=== PATIENT | female | born 1955 | race Caucasian/White ===

== ENCOUNTER 2023-08-18 07:27 | Outpatient (OUT) | payer MEDICARE, OTHER, SELFPAY ==
--- NOTE | 2023-08-18 | MM_ITS ---
Patient Name RICHARD KEEN MR# Age Sex Date Time [id number] F 08/18/2023 07:35 At the Request Of DR Joaquina Conteh M.D. RADIOLOGY REPORT PROCEDURE: MM TOMOSYNTHESIS SCREENING BI COMPARISON: MG MAMM SCREEN 3D [facility] CAD, 08/17/2022. MG MAMM SCREEN 3D [facility] CAD, 08/13/2021. INDICATIONS: screening Calculator Name NCI Breast Cancer Risk Assessment Tool 5 Year Breast Cancer Risk 1.40% Lifetime Breast Cancer Risk 4.60% Personal Breast Cancer No Personal Ovarian Cancer No Treatments None Family Cancers Brother with prostate cancer at age 69. LOCATION: [facility] BREAST COMPOSITION: Heterogeneously dense,which may obscure small masses. FINDINGS: DIAGNOSTIC CATEGORY 1--NEGATIVE. RIGHT BREAST: No significant suspicious finding. No significant change has occurred. LEFT BREAST: No significant suspicious finding. No significant change has occurred. RECOMMENDATIONS: ROUTINE MAMMOGRAM AND CLINICAL EVALUATION IN 12 MONTHS. PLEASE NOTE: A NORMAL MAMMOGRAM DOES NOT EXCLUDE THE POSSIBILITY OF BREAST CANCER. A CLINICALLY SUSPICIOUS PALPABLE LUMP SHOULD BE BIOPSIED. Dictated by: Shade Chirinos M.D. on 08/18/2023 at 12:31 Approved by: Shade Chirinos M.D. on 08/18/2023 at 12:34
== END 2023-08-18 07:28 | disposition home or self-care (01) ==
LOC: MAMMO 07:28
PROVIDERS: PCP Family Medicine; Visit Provider Family Medicine
DX: Z12.31 Encounter for screening mammogram for malignant neoplasm of breast (principal); Z80.42 Family history of malignant neoplasm of prostate
CPT/HCPCS: 77063; 77067

== ENCOUNTER 2023-09-14 09:28 | Outpatient (OUT) | payer MEDICARE, OTHER, SELFPAY ==
[2023-09-14 09:50] LABS: Basophils Absolute Auto 0.1 10^3/uL (0.0-0.1); Basophils Percent Auto 0.6 % (0.2-2.0); Eosinophils Absolute Auto 0.2 10^3/uL (0.0-0.7); Eosinophils Percent Auto 1.7 % (0.9-7.0); Hematocrit 41.2 % (36.0-48.0); Hemoglobin 12.8 g/dL (12.0-16.0); Immature Granulocytes Abs Auto 0.01 10^3/uL (0.00-0.03); Immature Granulocytes Pct Auto 0.1 % (0.0-0.5); Lymphocytes Absolute Auto 2.4 10^3/uL (1.2-3.8); Lymphocytes Percent Auto 23.5 % (20.5-60.0); Mean Corpuscular HGB Conc 31.1 g/dL (29.9-35.2); Mean Corpuscular Hemoglobin 26.3 pg (26.7-34.0); Mean Corpuscular Volume 84.6 fL (81.0-99.0); Mean Platelet Volume 10.1 fL (9.5-13.5); Monocytes Absolute Auto 0.7 10^3/uL (0.3-0.8); Neutrophils Percent Auto 67.1 % (43.0-75.0); Platelet Count 335 10^3/uL (150-450); Red Blood Count 4.87 10^6/uL (4.20-5.40); Red Cell Distribution Width 13.7 % (11.0-15.0); White Blood Count 10.4 10^3/uL (4.0-11.0)
[2023-09-14 11:06] LABS: Estimated Average Glucose 171 mg/dL; Glycohemoglobin A1C 7.6 % (4.5-6.2)
[2023-09-14 11:08] LABS: Alanine Aminotransferase 27 U/L (14-59); Albumin Globulin Ratio 0.9; Albumin Level 3.7 g/dL (3.4-5.0); Alkaline Phosphatase 106 U/L (46-116); Anion Gap 13.5; Aspartate Amino Transferase 24 U/L (15-37); BUN Creatinine Ratio 22.2; Bilirubin Total 0.8 mg/dL (0.2-1.0); Chloride 103 mmol/L (98-107); Chol HDL Ratio 3.4; Cholesterol 168 mg/dL (<=200); Estimated GFR (African America >60 (>=60); Estimated GFR (Non-African Ame >60 (>=60); Glucose 122 mg/dL (74-106); HDL Cholesterol 50 mg/dL (40-60); LDL Cholesterol Calculated 90.2 mg/dL; Potassium 4.5 mmol/L (3.5-5.1); Sodium 138 mmol/L (136-145); Total Protein 7.7 g/dL (6.4-8.2); Triglycerides 139 mg/dL (<=150); VLDL CHOLESTEROL 27.8 mg/dL
[2023-09-14 11:11] LABS: Microalbumin Urine Random 4.5 mg/dL (<=30.0)
== END 2023-09-14 09:29 | disposition home or self-care (01) ==
LOC: LAB 09:28
PROVIDERS: PCP Family Medicine; Visit Provider Family Medicine
DX: E11.65 Type 2 diabetes mellitus with hyperglycemia (principal); I10 Essential (primary) hypertension; E78.5 Hyperlipidemia, unspecified
CPT/HCPCS: 36415; 80053; 80061; 82043; 83036; 85025

== ENCOUNTER 2024-03-16 09:12 | Outpatient (OUT) | payer MEDICARE, OTHER, SELFPAY ==
--- OUTSIDE RECORDS SUMMARY | 2024-03-16 09:33 | XMS_ITS | CCD ---
Author Organization [facility] Care Team Providers Care Hadoop Analyst Name Role Phone REQUEST, NONE LISTED Attending Unavaila ble REQUEST, DR KANG LISTED Consulting Unavaila ble REQUEST, DR KANG LISTED Admitting Unavaila ble CONTEH, DR JOAQUINA Perrin Primary Care Unavailable CONTEH, DR JOAQUINA Perrin Admitting Unavailable CONTEH, DR JOAQUINA Perrin Attending Unavailable CONTEH, DR JOAQUINA Perrin Consulting Unavailable CONTEH, DR JOAQUINA Perrin Primary Care Unavailable CONTEH, DR JOAQUINA Perrin Attending Unavailable WEST, DR SUSAN Fountain Consulting Unavailable CONTEH, DR JOAQUINA Perrin Primary Care Unavailable CONTEH, DR JOAQUINA Perrin Admitting Unavailable CONTEH, DR JOAQUINA Perrin Consulting Unavailable REQUEST, NONE LISTED Admitting Unavaila ble REQUEST, DR KANG LISTED Attending Unavaila ble REQUEST, DR KANG LISTED Consulting Unavaila ble CONTEH, DR JOAQUINA Perrin Primary Care Unavailable Conteh, Joaquina Unavailable MD Benigno Johns II Attending Provider Benigno Johns II Unavailable MD Benigno Johns II Attending Provider MD Joaquina Conteh Primary Care Provider Benigno Johns II Attending Benigno Becerra II Admitting Unavailvale e Joaquina Conteh Primary Care Unavailable Benigno Johns II Attending Benigno Becerra II Admitting Pat e Allergies Allergy Classification Reported Allergen(s) Allergy Type Date of Onset Reaction(s) Facility (3 sources) patient allergy list reviewed by nurse or physicia Propensity to adverse reactions 8 Comment:Done [employer] Other (3 sources) Allergies Reconciled Propensity to adverse reactions Unknown [employer] Other Medications Current Medications Medication Drug Class(es) Dates Sig (Normalized) Sig (Original) [id number] actuat albuterol 0.09 mg/actuat metered dose inhaler (5 sources) beta2-Adrenergic Agonist Albuterol Sulfate HF A 108 (90 Base) MCG/ACT IHALE 2 PUFFS EVERY 4 HOURS NEEDED FOR 30 DAYS for 30 Active Albuterol Sulfat e HFA 108 (90 Base) MCG/ACT IHALE 2 PUFFS EVERY 4 HOURS NEEDED FOR 30 DAYS for 30 Active Albuterol Sulfat e HFA 108 (90 Base) MCG/ACT IHALE 2 PUFFS EVERY 4 HOURS NEEDED FOR 30 DAYS for 30 Active 120 actuat fluticasone propionate 0.11 mg/actuat metered dose inhaler (5 sources) Corticosteroid take 2 puff(s) by inhalation twice daily Fluticasone Propionate HFA 110 MCG/ACT 2 puffs Inhalation Twice a day for 90 days Active glipiZIDE er 10 mg 24 hr extended release oral tablet (2 sources) Sulfonylurea Start: 023 take 1 tablet by mouth every twenty-four hours glipiZIDE XL 10 MG 1 tablet with breakfast Orally Once a day for 30 day(s) Sep, Active glyBURIDE 5 mg oral tablet (3 sources) Sulfonylurea take 1 tablet by mouth once daily glyBURIDE 5 MG TAKE 1 TABLET BY MOUTH EVERY DAY for 90 Active lisinopril 20 mg oral tablet (5 sources) Angiotensin Converting Enzyme Inhibitor take 1 tablet by mouth once daily Lisinopril 20 MG TAKE 1 TABLET BY MOUTH EVERY DAY for 90 Active metFORMIN hydrochloride 1000 mg oral tablet (5 sources) Biguanide take 1 tablet by mouth twice daily metFORMIN HCl 1000 MG TAKE 1 TABLET BY MOUTH TWICE A DAY for 90 Active OneTouch Ultra - (3 sources) OneTouch Ultra - USE 1 STRIP DAILY TO TEST BLOOD SUGAR for 90 Active simvastatin 40 mg oral tablet (5 sources) HMG-CoA Reductase Inhibitor take 1 tablet by mouth once daily Simvastatin 40 MG TAKE 1 TABLET BY MOUTH EVERY DAY for 90 Active Completed/Discontinued Medications Medication Drug Class(es) Dates Sig (Normalized) Sig (Original) triamcinolone acetonide 40 mg/ml injectable suspension (6 sources) Corticosteroid Start: 07-22-2023 Kenalog-40 Jul, 40 mg Start: 07-22-2023 Kenalog-40 Jul, 80 mg Problems Active Problems Problem Classification Problem Date Documented Date Episodic/Chronic Asthma (9 sources) Asthma; Translations: [Unspecified asthma, uncomplicated] Onset: 02-20-2014 Chronic Diabetes mellitus with complications (9 sources) Type 2 diabetes mellitus with hyperglycemia; Translations: [Hyperglycemia due to type 2 diabetes mellitus] Onset: 09-19-2022 Chronic Diabetes mellitus without complication (1 source) Type 2 diabetes mellitus without complication; Translations: [Diabetes mellitus without mention of complication, type II or unspecified type, not stated as uncontrolled] Onset: 02-16-2018 Chronic Disorders of lipid metabolism (11 sources) Hyperlipidemia, unspecified; Translations: [Elevated fasting lipid profile] Onset: 02-20-2014 Chronic Essential hypertension (8 sources) Essential hypertension; Translations: [Essential (primary) hypertension] Onset: 02-20-2014 Chronic Immunizations and screening for infectious disease (1 source) Vaccination given; Translations: [Encounter for immunization] Episodic Osteoarthritis (6 sources) Primary gonarthrosis, bilateral; Translations: [Bilateral primary osteoarthritis of knee] Chronic Other circulatory disease (1 source) Elevated blood-pressure reading without diagnosis of hypertension; Translations: [Elevated blood-pressure reading, without diagnosis of hypertension] Episodic Other injuries and conditions due to external causes (1 source) History of fall; Translations: [History of falling] Episodic Other non-traumatic joint disorders (1 source) Pain in right knee Episodic Other non-traumatic joint disorders (1 source) Pain in left knee Episodic Other nutritional; endocrine; and metabolic disorders (2 sources) Body mass index 25-29 - overweight; Translations: [Body mass index (BMI) 27.0-27.9, adult] Onset: 02-16-2018 Episodic Unclassified (1 source) Pain in right knee; Translations: [Pain in right knee] Onset: 08-27-2023 Past or Other Problems Problem Classification Problem Date Documented Date Episodic/Chronic Other non-traumatic joint disorders (1 source) Arthralgia of the lower leg; Translations: [Pain in joint, lower leg] Onset: 06-08-2018 Episodic Other screening for suspected conditions (not mental disorders or infectious disease) (4 sources) Encounter for screening mammogram for malignant neoplasm of breast; Translations: [ENC SCR MAMMO MALIG NEOPLASM BREAST] Onset: 08-17-2022 Episodic Residual codes; unclassified (1 source) Family history of malignant neoplasm of other organs or systems; Translations: [FAM HX MALIG NEOPLASM OTH ORGN/SYS] Onset: 08-22-2022 Episodic Unclassified (1 source) Vaccine product containing only acellular Bordetella pertussis and Clostridium tetani and Corynebacterium diphtheriae antigens (medicinal product); Translations: [Tlgddapbbk-pzwnvly-z ertussis, combined [DTP] [DtaP]] Onset: 06-07-2017 Results Test Name Value Interpretation Reference Range Facility XR knee BI 4Von 07-22-2023 XR knee BI 4V [facility] [place] [address] XRay Report Signed Patient: Richard Keen MR#: [id number] 4 : 1955 Acct:[id number] Age/Sex: 67 / F ADM Date: 07/22/23 Loc: [facility] Room: Type: [facility] Attending Dr: Benigno Johns II, MD Copies to: Benigno Johns MD Ordering Provider: Benigno Johns MD Date of Service: 07/22/23 XR/XR knee BI 4V: PAIN ([id number]) XR/XR pelvis 1-2V: PAIN AP PELVIS: Bilateral knee series 4 views each CLINICAL HISTORY: Bilateral knee pain and stiffness for 13 years. COMPARISON: None Pelvis: Mild degenerative changes of both hips without acute bony process. Additional degenerative changes seen involving the visualized lower lumbar spine and SI joints. Bilateral knee series: Severe degenerative changes of both knees with patellofemoral and medial weightbearing joint space narrowing. Calcified loose bodies are noted. No acute bony process is seen. XR/XR pelvis 1-2V IMPRESSION: PELVIS DEMONSTRATES MILD DEGENERATIVE CHANGES OF THE HIPS WITHOUT ACUTE BONY PROCESS. KNEE SERIES DEMONSTRATES SEVERE DEGENERATIVE CHANGES OF BOTH KNEES WITHOUT ACUTE BONY PROCESS. Impression dictated by: Lane Velasquez Jr., D.OMimi07/22/2023 3:08 PM Dictation Location: [place] [address] Transcribed By: [facility] 07/22/23 1508 Dictated By: Lane Velasquez Jr, DO 07/22/23 1506 Signed By: 07/22/23 1508 Normal [facility] GLYCOHEMOGLOBIN A1Con 2022 ADA RECOMMENDATION SEE BELOW Normal [facility] Comment on above: Result Comment: ADA RECOMMENDED LIMIT 4.0 - 6.0 ADA THERAPEUTIC TARGET < 7.0 ACTION SUGGESTED > 7.0 Performed By: #### D ATA1C #### [facility] [address] [place] [address] Dr. Sumeet Guerra Glucose [Mass/Vol] 154 mg/dL Normal [facility] Comment on above: Performed By: #### D ATA1C #### [facility] [address] [place] [address] Dr. Sumeet Guerra HbA1c (Bld) [Mass fraction] 7.0 % Critically high 4.5-6.2 [facility] Comment on above: Performed By: #### D ATA1C #### [facility] [address] [place] [address] Dr. Sumeet Guerra CBC AUTO DIFFon 09-16-2022 BASO # 0.0 103/ul Normal 0.0-0.1 [facility] Comment on above: Performed By: #### C BC #### [facility] [address] [place] [address] Dr. Sumeet Guerra Basophils/100 WBC (Bld) 0.4 % Normal 0.2-2.0 [facility] Comment on above: Performed By: #### C BC #### [facility] [address] [place] [address] Dr. Sumeet Guerra EO # 0.1 103/ul Normal 0.0-0.7 [facility] Comment on above: Performed By: #### C BC #### [facility] [address] [place] [address] Dr. Sumeet Guerra Eosinophils/100 WBC (Bld) 1.7 % Normal 0.9-7.0 [facility] Comment on above: Performed By: #### C BC #### [facility] [address] [place] [address] Dr. Sumeet Guerra Erythrocyte distribution width (RBC) [Ratio] 12.9 % Normal 11.0-15.0 [facility] Comment on above: Performed By: #### C BC #### [facility] [address] [place] [address] Dr. Sumeet Guerra Hematocrit (Bld) [Volume fraction] 39.8 % Normal 36.0-48.0 [facility] Comment on above: Performed By: #### C BC #### [facility] [address] [place] [address] Dr. Sumeet Guerra Hemoglobin (Bld) [Mass/Vol] 12.9 g/dL Normal 12.0-16.0 [facility] Comment on above: Performed By: #### C BC #### [facility] [address] [place] [address] Dr. Sumeet Guerra IG # 0.02 10e3/ul Normal 0.00-0.03 [facility] Comment on above: Performed By: #### C BC #### [facility] [address] [place] [address] Dr. Sumeet Guerra IG % 0.3 % Normal 0.0-0.5 [facility] Comment on above: Performed By: #### C BC #### [facility] [address] [place] [address] Dr. Sumeet Guerra LYMPH # 2.1 103/ul Normal 1.2-3.8 [facility] Comment on above: Performed By: #### C BC #### [facility] [address] [place] [address] Dr. Sumeet Guerra Lymphocytes/100 WBC (Bld) 26.8 % Normal 20.5-60.0 [facility] Comment on above: Performed By: #### C BC #### [facility] [address] [place] [address] Dr. Sumeet Guerra MANUAL DIFF REQ NO Normal [facility] Comment on above: Performed By: #### C BC #### [facility] [address] [place] [address] Dr. Sumeet Guerra MCH (RBC) [Entitic mass] 27.7 pg Normal 26.7-34.0 [facility] Comment on above: Performed By: #### C BC #### [facility] [address] [place] [address] Dr. Sumeet Guerra MCHC (RBC) [Mass/Vol] 32.4 g/dL Normal 29.9-35.2 [facility] Comment on above: Performed By: #### C BC #### [facility] [address] [place] [address] Dr. Sumeet Guerra MCV (RBC) [Entitic vol] 85.6 fL Normal 81.0-99.0 [facility] Comment on above: Performed By: #### C BC #### [facility] [address] [place] [address] [address] Sumeet Guerra MONO # 0.6 103/ul Normal 0.3-0.8 [facility] Comment on above: Performed By: #### C BC #### [facility] [address] [place] [address] Dr. Sumeet Guerra Monocytes/100 WBC (Bld) 7.8 % Normal 1.7-12.0 [facility] Comment on above: Performed By: #### C BC #### [facility] [address] [place] [address] Dr. Sumeet Guerra NEUT # 4.9 103/ul Normal 1.4-6.5 [facility] Comment on above: Performed By: #### C BC #### [facility] [address] [place] [address] Dr. Sumeet Guerra Neutrophils/100 WBC (Bld) 63.0 % Normal 43.0-75.0 [facility] Comment on above: Performed By: #### C BC #### [facility] [address] [place] [address] Dr. Sumeet Guerra Platelet mean volume (Bld) [Entitic vol] 11.5 fL Normal 9.5-13.5 [facility] Comment on above: Performed By: #### C BC #### [facility] [address] [place] [address] Dr. Sumeet Guerra PLT 285 103/ul Normal 150-450 [facility] Comment on above: Performed By: #### C BC #### [facility] [address] [place] [address] Dr. Sumeet Guerra RBC 4.65 106/ul Normal 4.20-5.40 [facility] Comment on above: Performed By: #### C BC #### [facility] [address] [place] [address] [address] Sumeet Guerra WBC 7.7 103/ul Normal 4.0-11.0 [facility] Comment on above: Performed By: #### C BC #### [facility] [address] [place] [address] [address] Sumeet Guerra GLYCOHEMOGLOBIN A1Con 2021 ADA RECOMMENDATION SEE BELOW Normal [facility] Comment on above: Result Comment: ADA RECOMMENDED LIMIT 4.0 - 6.0 ADA THERAPEUTIC TARGET < 7.0 ACTION SUGGESTED > 7.0 Performed By: #### A 1C #### [facility] [address] [place] [address] Dr. Sumeet Guerra Glucose [Mass/Vol] 200 mg/dL Normal [facility] Comment on above: Performed By: #### A 1C #### [facility] [address] [place] [address] Dr. Sumeet Guerra HbA1c (Bld) [Mass fraction] 8.6 % Critically high 4.5-6.2 [facility] Comment on above: Performed By: #### A 1C #### [facility] [address] [place] [address] Dr. Sumeet Guerra LIPID PROFILEon 09-16-2022 CHOL-HDL RATIO NORM SEE BELOW Normal [facility] Comment on above: Result Comment: 3.3 - 4.4 LOW RISK 4.4 - 7.1 AVERAGE RISK 7.1 - 11.0 MODERATE RISK >11.0 HIGH RISK Performed By: #### L IPID, CMP #### [facility] [address] [place] [address] Dr. Sumeet Guerra Cholesterol [Mass/Vol] 138 mg/dL Normal <=200 [facility] Comment on above: Performed By: #### L IPID, CMP #### [facility] [address] [place] [address] Dr. Sumeet Guerra Cholesterol in HDL [Mass/Vol] 48 mg/dL Normal 40-60 [facility] Comment on above: Performed By: #### L IPID, CMP #### [facility] [address] [place] [address] [address] Sumeet Guerra Cholesterol in LDL [Mass/Vol] 71.6 mg/dL Normal [facility] Comment on above: Performed By: #### L IPID, CMP #### [facility] [address] [place] [address] Dr. Sumeet Guerra Cholesterol.total/Cho lesterol in HDL [Mass ratio] 2.9 {ratio} Normal [facility] Comment on above: Performed By: #### L IPID, CMP #### [facility] [address] [place] [address] Dr. Sumeet Guerra HDL NORMAL > or = 60 mg/dl - LOW CARDIOVASCULAR RISK <40 mg/dl - HIGH CARDIOVASCULAR RISK Normal [facility] Comment on above: Performed By: #### L IPID, CMP #### [facility] [address] [place] [address] Dr. Sumeet Guerra LDL CALC NORMAL SEE BELOW Normal [facility] Comment on above: Result Comment: <100 mg/dl OPTIMAL 100 - 129 mg/dl NEAR OR ABOVE OPTIMAL 130 - 159 mg/dl BORDERLINE HIGH 160 - 189 mg/dl HIGH >190 mg/dl VERY HIGH Performed By: #### L IPID, CMP #### [facility] [address] [place] [address] Dr. Sumeet Guerra Triglyceride [Mass/Vol] 92 mg/dL Normal <=150 [facility] Comment on above: Performed By: #### L IPID, CMP #### [facility] [address] [place] [address] Dr. Sumeet Guerra VLDL CALC 18.4 mg/dL Normal [facility] Comment on above: Performed By: #### L IPID, CMP #### [facility] [address] [place] [address] Dr. Sumeet Guerra MICROALBUMIN, RAND URon 12-0 mALB 12.7 mg/L Normal <=30.0 [facility] Comment on above: Performed By: #### M ALBR #### [facility] [address] [place] [address] [address] Sumeet Guerra PROF 14(COMP METB)on 022 Albumin [Mass/Vol] 3.9 g/dL Normal 3.4-5.0 [facility] Comment on above: Performed By: #### L IPID, CMP #### [facility] [address] [place] [address] [address] Sumeet Guerra Albumin/Globulin [Mass ratio] 1.1 {ratio} Normal [facility] Comment on above: Performed By: #### L IPID, CMP #### [facility] [address] [address] [address] Sumeet Guerra ALP [Catalytic activity/Vol] 103 U/L Normal 46-116 [facility] Comment on above: Performed By: #### L IPID, CMP #### [facility] [address] [place] [address] Dr. Sumeet Guerra ALT [Catalytic activity/Vol] 45 U/L Normal 14-59 [facility] Comment on above: Performed By: #### L IPID, CMP #### [facility] [address] [place] [address] Dr. Sumeet Guerra Anion gap [Moles/Vol] 12.7 mmol/L Normal [facility] Comment on above: Performed By: #### L IPID, CMP #### [facility] [address] [place] [address] Dr. Sumeet Guerra AST [Catalytic activity/Vol] 31 U/L Normal 15-37 [facility] Comment on above: Performed By: #### L IPID, CMP #### [facility] [address] [place] [address] Dr. Sumeet Guerra Bilirubin [Mass/Vol] 0.8 mg/dL Normal 0.2-1.0 [facility] Comment on above: Performed By: #### L IPID, CMP #### [facility] [address] [address] [address] Sumeet Guerra Calcium [Mass/Vol] 9.3 mg/dL Normal 8.5-10.1 [facility] Comment on above: Performed By: #### L IPID, CMP #### [facility] [address] [address] [address] Sumeet Guerra Chloride [Moles/Vol] 103 mmol/L Normal 98-107 [facility] Comment on above: Performed By: #### L IPID, CMP #### [facility] [address] [address] [address] Sumeet Guerra CO2 [Moles/Vol] 30.3 mmol/L Normal 21.0-32.0 [facility] Comment on above: Performed By: #### L IPID, CMP #### [facility] [address] [address] [address] Sumeet Guerra Creatinine [Mass/Vol] 0.64 mg/dL Normal 0.55-1.02 [facility] Comment on above: Performed By: #### L IPID, CMP #### [facility] [address] [place] [address] Dr. Sumeet Guerra EGFR-AF GUAMANIAN >60 Normal >=60 [facility] Comment on above: Performed By: #### L IPID, CMP #### [facility] [address] [place] [address] Dr. Sumeet Guerra EGFR-NON AF GUAMANIAN >60 Normal >=60 [facility] Comment on above: Performed By: #### L IPID, CMP #### [facility] [address] [place] [address] Dr. Sumeet Guerra Globulin (S) [Mass/Vol] 3.7 g/dL Normal [facility] Comment on above: Performed By: #### L IPID, CMP #### [facility] [address] [address] [address] Sumeet Guerra Glucose [Mass/Vol] 151 mg/dL Critically high 74-106 [facility] Comment on above: Performed By: #### L IPID, CMP #### [facility] [address] [place] [address] Dr. Sumeet Guerra Potassium [Moles/Vol] 4.0 mmol/L Normal 3.5-5.1 [facility] Comment on above: Performed By: #### L IPID, CMP #### [facility] [address] [address] [address] Sumeet Guerra Protein [Mass/Vol] 7.6 g/dL Normal 6.4-8.2 [facility] Comment on above: Performed By: #### L IPID, CMP #### [facility] [address] [address] [address] Sumeet Guerra Sodium [Moles/Vol] 142 mmol/L Normal 136-145 [facility] Comment on above: Performed By: #### L IPID, CMP #### [facility] [address] [address] [address] Sumeet Guerra Urea nitrogen [Mass/Vol] 17.0 mg/dL Normal 7.0-18.0 [facility] Comment on above: Performed By: #### L IPID, CMP #### [facility] [address] [address] [address] Sumeet Guerra Urea nitrogen/Creatinine [Mass ratio] 26.6 mg/mg Normal [facility] Comment on above: Performed By: #### L IPID, CMP #### [facility] [address] [address] [address] Sumeet Guerra MG MAMM SCREEN 3D MARYCRUZ CADon 08-17-2022 MG MAMM SCREEN 3D MARYCRUZ CAD Patient: RICHARD KEEN Exam Date: 08/17/2022 : 1955 Gender:F Ordering : DR JOAQUINA CONTEH M.D. Admission #: [id number] Family : Order #: [id number] CLICK HERE TO VIEW EXAM RADIOLOGY REPORT PROCEDURE: MAMMOGRAM SCREENING 3D BILATERAL CAD COMPARISON: MG MAMM SCREEN MARYCRUZ W CAD, 08/12/2020. MG MAMM SCREEN 3D MARYCRUZ CAD, 08/13/2021. INDICATIONS: Screening mammography Calculator Name NCI Breast Cancer Risk Assessment Tool 5 Year Breast Cancer Risk 1.40% Lifetime Breast Cancer Risk 4.80% Personal Breast Cancer No Personal Ovarian Cancer No Treatments None Family Cancers Brother with prostate cancer at age 69. LOCATION: [facility] BREAST COMPOSITION: Heterogeneously dense,which may obscure small masses. FINDINGS: DIAGNOSTIC CATEGORY 2--BENIGN FINDING. NO CHANGE FROM COMPARISON. Scattered benign-appearing nodules are present. Scattered benign-appearing calcifications are present. Scattered benign-appearing lymph nodes are present. RIGHT BREAST: No significant suspicious finding. LEFT BREAST: No significant suspicious finding. RECOMMENDATIONS: ROUTINE MAMMOGRAM AND CLINICAL EVALUATION IN 12 MONTHS. PLEASE NOTE: A NORMAL MAMMOGRAM DOES NOT EXCLUDE THE POSSIBILITY OF BREAST CANCER. A CLINICALLY SUSPICIOUS PALPABLE LUMP SHOULD BE BIOPSIED. Dictated by: Susan Ardon MD on 08/17/2022 at 11:59 Approved by: Susan Ardon MD on 08/17/2022 at 12:[address] [facility] GLYCOHEMOGLOBIN A1Con 2021 ADA RECOMMENDATION SEE BELOW Normal [facility] Comment on above: Result Comment: ADA RECOMMENDED LIMIT 4.0 - 6.0 ADA THERAPEUTIC TARGET < 7.0 ACTION SUGGESTED > 7.0 Performed By: #### D ATA1C #### [facility] [address] [place] [address] Dr. Sumeet Guerra Glucose [Mass/Vol] 192 mg/dL Normal [facility] Comment on above: Performed By: #### D ATA1C #### [facility] [address] [place] [address] Dr. Sumeet Guerra HbA1c (Bld) [Mass fraction] 8.3 % Critically high 4.5-6.2 [facility] Comment on above: Performed By: #### D ATA1C #### [facility] [address] [place] [address] Dr. Sumeet Guerra Vital Signs Date Time Vital Sign Value Performing Clinician Facility 09-15-2023 08:30-0500 Body height 154.94 cm Joaquina Conteh Other [facility] Other 09-15-2023 08:30-0500 Body mass index (BMI) [Ratio] 27.58 kg/m2 Joaquina Conteh Other [facility] Other 09-15-2023 08:30-0500 Body weight 66.23 kg Joaquina Conteh Other [facility] Other 09-15-2023 08:30-0500 Diastolic blood pressure 74 mm[Hg] Joaquina Conteh Other [facility] Other 09-15-2023 08:30-0500 Systolic blood pressure 142 mm[Hg] Joaquina Cnoteh Other [facility] Other 07-22-2023 10:30-0400 Body height 154.94 cm Benigno Trimble II Other [facility] Other 07-22-2023 10:30-0400 Body mass index (BMI) [Ratio] 28.15 kg/m2 Benigno Trimble II Other [facility] Other 07-22-2023 10:30-0400 Body weight 67.59 kg Benigno Trimble II Other [facility] Other 03-17-2023 08:30-0400 Body height 154.94 cm Joaquina Conteh Other [facility] Other 03-17-2023 08:30-0400 Body mass index (BMI) [Ratio] 28.15 kg/m2 Joaquina Conteh Other [facility] Other 03-17-2023 08:30-0400 Body weight 67.59 kg Joaquina Conteh Other [facility] Other 03-17-2023 08:30-0400 Diastolic blood pressure 80 mm[Hg] Joaquina Conteh Other [facility] Other 03-17-2023 08:30-0400 Systolic blood pressure 152 mm[Hg] Joaquina Conteh Other [facility] Other Encounters Encounter Date Encounter Type Care Provider Facility Start: 11-04-2023 End: 11-04-2023 ambulatory Benigno Andreas II Other [facility] Other Start: 11-04-2023 Office outpatient vi sit 15 minutes Benigno Johns II [facility] Start: 09-15-2023 End: 09-15-2023 ambulatory Joaquina Conteh Other [facility] Other Start: 09-15-2023 Patient encounter procedure Joaquina Conteh [facility] Start: 08-27-2023 End: 08-27-2023 ambulatory Benigno Johns II Facility:[facility] Start: 08-27-2023 End: 08-27-2023 ambulatory MD Joaquina Conteh Work Phone: [facility] Work Phone: Start: 08-27-2023 End: 08-27-2023 Discharged Recurring MD Joaquina Conteh Work Phone: [facility] [place] Start: 07-22-2023 Office outpatient ne w 45 minutes Benigno Johns II [facility] Start: 07-22-2023 End: 07-22-2023 ambulatory Benigno Johns II Facility:[facility] Start: 07-22-2023 End: 07-22-2023 ambulatory MD Benigno Johns II Work Phone: [facility] Work Phone: Start: 07-22-2023 End: 07-22-2023 Patient encounter procedure MD Benigno Johns II Work Phone: [facility] Start: 03-23-2023 End: 03-23-2023 ambulatory Joaquina Conteh Other [facility] Other Start: 03-23-2023 Telephone encounter Joaquina Conteh [facility] Start: 03-17-2023 End: 03-17-2023 ambulatory Joaquina Conteh Other [facility] Other Start: 03-17-2023 Office outpatient vi sit 15 minutes Joaquina Conteh [facility] Start: 01-13-2023 End: 01-14-2023 ambulatory NONE LISTED REQUEST Facility:[facility] Start: 09-16-2022 Adult health examination Benigno Johns II Other [facility] Other Start: 09-16-2022 Problem, abnormal examination Benigno Johns II Other [facility] Other Start: 09-16-2022 End: 09-17-[address] JOAQUINA CONTEH Facility:[facility] Start: 08-17-2022 End: 08-18-[address] JOAQUINA CONTEH Facility:[facility] Start: 04-23-2022 End: 04-24-2022 ambulatory NONE LISTED REQUEST Facility:[facility] Procedures Date Procedure Procedure Detail Performing Clinician Start: 07-22-2023 Pelvis X-ray MD Benigno Johns II Work Phone: Start: 07-22-2023 X-ray of both knees MD Benigno Johns II Work Phone: Start: 06-08-2018 Screening for malign ant neoplasm of colon Benigno Johns II Other Start: 06-07-2017 Screening mammography R philipplenny Johns II Other Screening for malign ant neoplasm of breast Benigno Johns II Other Immunizations Immunization Date Immunization Notes Care Provider Fa [facility] 08-06-2022 influenza virus vaccine, split virus (incl. purified surface antigen) Benigno Johns II Other [facility] Other 07-28-2022 COVID-19 Pfizer (Pediatric) Benigno Johns II Other [facility] Other 07-08-2021 influenza virus vaccine, split virus (incl. purified surface antigen) Benigno Johns II Other [facility] Other 01-11-2021 COVID-19 Vaccine Pfi zer - Documentation Purposes Only Benigno Johns II Other [facility] Other 09-03-2020 COVID-19 Vaccine Pfi zer - Documentation Purposes Only Benigno Johns II Other [facility] Other 08-12-2020 pneumococcal conjuga te vaccine, 13 valent Benigno Johns II Other [facility] Other 07-26-2020 influenza virus vaccine, split virus (incl. purified surface antigen) Benigno Johns II Other [facility] Other 07-07-2018 influenza virus vaccine, split virus (incl. purified surface antigen) Benigno Johns II Other [facility] Other 06-07-2017 diphtheria, tetanus toxoids and acellular pertussis vaccine, unspecified formulation Benigno Johns II Other [facility] Other Payers Date Payer Category Payer Unknown [id number] 1960 Medicare [id number] 1960 Self-pay 1960 Unknown [id number] 1955 Unknown [id number] .[id number] [id number] 1955 Unknown [id number] Unknown [id number] [id number] Unknown [id number] .16.84 [id number] Unknown [id number] Unknown [id number] Social History Date Type Detail Facility Unknown if ever smoked [facility] Other Sex Assigned At Sex Assigned At Bir th [facility] Other Start: 1955 Sex Assigned At Female F [facility] Medical Equipment Procedure Code Equipment Code Equipment Original Text Equi pment Identifier Dates [employer] Plus [id number] - Evaluation note 11-04-2023 Note Date & Type Note Facility 11-04-2023 Evaluation note Encounter Date Diagnosis Assessment Notes Oct, Primary osteoarthritis of both knees (ICD-10 - M17.0) Oct, Other Given the data corruption on the date of service on unable to recall our treatment plan discussion in its entirety. This documentation is being amended on 11/08/23 due to an internal data corruption event that occurred on 11/04/23. This data corruption event was NOT the result of any breach, fraud, or malicious third constitution party actors and no personal patient information was compromised. [facility] Other Evaluation note 09-15-2023 Note Date & Type Note Facility 09-15-2023 Evaluation note Encounter Date Diagnosis Assessment Notes Sep, Medicare annual wellness visit, subsequent (ICD-10 - Z00.00) Personalized health advice was given to the beneficiary including a written plan for screenings discussed and provided. Advanced care planning reviewed and/or information given as requested. Additional counseling was provided here today in regards to, [ ]. The above visit was performed by [ ], under direct supervision of [ ]. Document reviewed and amended by provider signed below. Sep, Hyperglycemia due to type 2 diabetes mellitus (ICD-10 - E11.65) Discussed labs and meds will change glyburide to glipizide followup in 6 months Sep, Asthma (ICD-10 - J45.909) pt states flovent is not on formulary but fluticasone is. states asthma is stable on present med and dose. Sep, Primary osteoarthritis of both knees (ICD-10 - M17.0) Reviewed PT and treatment with injection w ortho. [facility] Other Evaluation note 07-22-2023 Note Date & Type Note Facility 07-22-2023 Evaluation note Encounter Date Diagnosis Assessment Notes Jul, Pain in right knee (ICD-10 - M25.561) Jul, Pain in left knee (ICD-10 - M25.562) Jul, Primary osteoarthritis of both knees (ICD-10 - M17.0) Jul, Other 1. We had a long discussion with the patient today concerning their right and left knee osteoarthritis. The radiographs do show osteoarthritis of the knees. However, patient is not really having pain. I explained to her that the #1 reason to do a total knee replacement is for pain relief and if she is not having significant pain that may not be her best option. Patient voiced understanding and would like to avoid surgery if possible. 2. Tylenol: Discussed taking Tylenol (acetaminophen). Recommended adjusting their dosing to 1000mg by mouth up to 3 times a day. 3. NSAIDs: Prescribed Voltaren gel to be utilized 4-5 times a day. 4. Physical therapy: Discussed formal physical therapy and home regimen. We will get her into formal physical therapy to work on her range of motion. 5. Injections: Discussed injections as a treatment option. I informed the patient that the combination of the medication with their diabetes diagnosis could elevate their blood sugar levels temporarily. If they noticed any elevation of their blood sugar levels over the next several days, I recommended they call their PCP for further blood sugar management guidance. Patient understood and still wished to proceed with the injection. After consent was obtained, the right and left knees were injected with 2cc Kenalog and 8cc bupivicaine using sterile technique. Patient tolerated the injections well. 6. Follow up 3 months. [facility] Other Evaluation note 03-17-2023 Note Date & Type Note Facility 03-17-2023 Evaluation note Encounter Date Diagnosis Assessment Notes Mar, Asthma (ICD-10 - J45.909) Pt requests refill. Denies increased symptoms with poor air quality. Mar, Essential hypertension (ICD-10 - I10) Elevated today. Discussed increasing dose of lisinopril. Will check home bps for 1 week and call with results. Mar, Elevated lipids (ICD-10 - E78.5) chronic - check labs in Mar, Hyperglycemia due to type 2 diabetes mellitus (ICD-10 - E11.65) Improved A1C - order placed and sent to [facility] Other Evaluation note Note Date & Type Note Facility Evaluation note No Information [facility] [employer] Other Evaluation note Note Date & Type Note Facility Evaluation note No assessment information availa ble [facility] Work Phone: History general Narrative - Reported Note Date & Type Note Facility History general Narrative - Reported Type Medical History Asthma Medical History Essential hypertension Medical History Hyperglycemia due to type 2 diabetes mellitus Medical History Elevated lipids Surgical History 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 196 8 Hospitalization History SEE SURGICAL HX [place] [employer] Other Summary Purpose Family History No Family History Records FoundNo Family History Records Found Advance Directives Advance Directive Response Recorded Date/ Time Advance Directives No July 22, 2023 12:13pm Advance Directive Response Recorded Date/ Time Advance Directives No July 23, 2023 4:39pm Chief Complaint and Reason for Visit Chief Complaint m25.561 m25.562 R & L Knee pain Additional Source Comments INFORMATION SOURCE (unrecogn ized section and content) DATE CREATED AUTHOR 01/14/2023 [facility] DATE CREATED AUTHOR AUTHOR'S ORGANIZ ATION 10/14/2023 [facility] REASON FOR VISIT (unrecogniz ed section and content) 6 MONTH FOLLOW UP [facility] readi ngsNP BILAT KNEE PAINWELLNESS3 MONTH FOLLOW UP Care Teams (unrecognized sec tion and content) Team Status: Active Member Role Status Dates Joaquina Conteh MD Primary Care Provider Active Team Status: Inactive Member Role Status Dates Benigno Johns II, MD Attending Provider Active Team Status: Inactive Member Role Status Dates Benigno Johns II, MD Attending Provider Active Joaquina Conteh MD Primary Care Provider Active Goals (unrecognized section and content) Goals may be documented in a n alternate section FOR RECORDS PERTAINING TO PATIENTS WHO ARE OR HAVE BEEN ENROLLED IN A CHEMICAL DEPENDENCY/SUBSTANCEABUSE PROGRAM, SOME INFORMATION MAY BE OMITTED. This clinical summary was aggregated from multiple sources. Caution should be exercised in using it in the provision of clinical care. This summary normalizes information from multiple sources, and as a consequence, information in this document may materially change the coding, format and clinical context of patient data. In addition, data may be omitted in some cases. CLINICAL DECISIONS SHOULD BE BASED ON THE PRIMARY CLINICAL RECORDS. [employer] [facility]. provides no warranty or guarantee of the accuracy or completeness of information in this document.
[2024-03-16 11:52] LABS: Basophils Absolute Auto 0.1 10^3/uL (0.0-0.1); Basophils Percent Auto 0.7 % (0.2-2.0); Eosinophils Absolute Auto 0.2 10^3/uL (0.0-0.7); Eosinophils Percent Auto 1.9 % (0.9-7.0); Hematocrit 37.3 % (36.0-48.0); Hemoglobin 11.8 g/dL (12.0-16.0); Immature Granulocytes Abs Auto 0.02 10^3/uL (0.00-0.03); Immature Granulocytes Pct Auto 0.2 % (0.0-0.5); Lymphocytes Absolute Auto 2.3 10^3/uL (1.2-3.8); Lymphocytes Percent Auto 25.2 % (20.5-60.0); Mean Corpuscular HGB Conc 31.6 g/dL (29.9-35.2); Mean Corpuscular Hemoglobin 26.5 pg (26.7-34.0); Mean Corpuscular Volume 83.6 fL (81.0-99.0); Mean Platelet Volume 11.9 fL (9.5-13.5); Monocytes Absolute Auto 0.7 10^3/uL (0.3-0.8); Neutrophils Absolute Auto 5.9 10^3/uL (1.4-6.5); Platelet Count 338 10^3/uL (150-450); Red Blood Count 4.46 10^6/uL (4.20-5.40); Red Cell Distribution Width 14.1 % (11.0-15.0); White Blood Count 9.2 10^3/uL (4.0-11.0)
[2024-03-16 12:43] LABS: Estimated Average Glucose 186 mg/dL; Glycohemoglobin A1C 8.1 % (4.5-6.2)
== END 2024-03-16 09:13 | disposition home or self-care (01) ==
LOC: LAB 09:14
PROVIDERS: PCP Family Medicine; Visit Provider Family Medicine
DX: D64.9 Anemia, unspecified (principal); E11.65 Type 2 diabetes mellitus with hyperglycemia
CPT/HCPCS: 36415; 83036; 85025

== ENCOUNTER 2024-08-21 08:25 | Outpatient (OUT) | payer MEDICARE, OTHER, SELFPAY ==
--- NOTE | 2024-08-21 08:27 | MM_ITS ---
Patient Name: RICHARD KEEN MR#: [id number] : 1955 Exam Date: 08/21/2024 Ordering Doctor: DR Joaquina Conteh M.D. RADIOLOGY REPORT PROCEDURE: MM TOMOSYNTHESIS SCREENING BI COMPARISON: MG MAMM SCREEN 3D [facility] CAD, 08/17/2022. MM TOMOSYNTHESIS SCREENING BI, 08/18/2023. INDICATIONS: Screening Calculator Name NCI Breast Cancer Risk Assessment Tool 5 Year Breast Cancer Risk 1.40% Lifetime Breast Cancer Risk 4.30% Personal Breast Cancer No Personal Ovarian Cancer No Treatments None Family Cancers Brother with prostate cancer at age 69. LOCATION: [facility] BREAST COMPOSITION: The breasts are heterogeneously dense,which may obscure small masses. FINDINGS: DIAGNOSTIC CATEGORY 2--BENIGN FINDING. NO CHANGE FROM COMPARISON. Scattered benign-appearing calcifications are present. Scattered benign-appearing lymph nodes are present. RIGHT BREAST: No significant suspicious finding. LEFT BREAST: No significant suspicious finding. RECOMMENDATIONS: ROUTINE MAMMOGRAM AND CLINICAL EVALUATION IN 12 MONTHS. PLEASE NOTE: A NORMAL MAMMOGRAM DOES NOT EXCLUDE THE POSSIBILITY OF BREAST CANCER. A CLINICALLY SUSPICIOUS PALPABLE LUMP SHOULD BE BIOPSIED. Dictated by: Jet Ardon MD on 08/21/2024 at 09:04 Approved by: Jet Ardon MD on 08/21/2024 at 09:06
--- OUTSIDE RECORDS SUMMARY | 2024-08-21 08:36 | XMS_ITS | CCD ---
Author Organization [facility] Care Team Providers Care Anesthesiologist/Physician Name Role Phone REQUEST, NONE LISTED Attending [...] LISTED Consulting Unavaila ble CONTEH, DR JOAQUINA ePrrin Primary Care Unavailable Conteh, Joaquina Unavailable MD [...] physicia Propensity to adverse reactions 8 Comment:Done [facility] Other (3 sources) Allergies Reconciled Propensity to adverse reactions Unknown [facility] Other Medications Current Medications Medication Drug Class(es) Dates Sig (Normalized) Sig (Original) [id number] 60 actuat albuterol 0.09 mg/actuat metered dose [...] and Corynebacterium diphtheriae antigens (medicinal product); Translations: [Bnriehtswo-avxipbq-j ertussis, combined [DTP] [DtaP]] Onset: 06-07-2017 Results Test Name Value Interpretation Reference Range Facility XR knee BI 4Von 07-22-2023 XR knee BI 4V [facility] [place] [address] XRay Report Signed Patient: Richard Keen MR#: [id number] 4 : 1955 Acct:[id number] Age/Sex: 67 / F ADM Date: 07/22/23 Loc: [facility] Room: Type: [facility] Attending Dr: Benigno Johns II, MD Copies to: Benigno Johns MD Ordering Provider: Benigno Johns MD Date of Service: 07/22/23 XR/XR knee BI 4V: PAIN ([id number]) XR/XR pelvis 1-2V: PAIN AP PELVIS: Bilateral [...] Velasquez Jr., D.OMimi07/22/2023 3:08 PM Dictation Location: [place] [address] Transcribed By: [facility] 07/22/23 1508 Dictated By: Lane Velasquez Jr, DO 07/22/23 1506 Signed By: 07/22/23 1508 Normal [facility] GLYCOHEMOGLOBIN A1Con 2022 ADA RECOMMENDATION SEE BELOW Normal [facility] Comment on above: Result Comment: ADA RECOMMENDED LIMIT 4.0 - 6.0 ADA THERAPEUTIC TARGET < 7.0 ACTION SUGGESTED > 7.0 Performed By: #### D ATA1C #### [facility] [address] [place] [address] Dr. Sumeet Guerra Glucose [Mass/Vol] 154 mg/dL Normal [facility] Comment on above: Performed By: #### D ATA1C #### [facility] [address] [place] [address] Dr. Sumeet Guerra HbA1c (Bld) [Mass fraction] 7.0 % Critically high 4.5-6.2 [facility] Comment on above: Performed By: #### D ATA1C #### [facility] [address] [place] [address] Dr. Sumeet Guerra CBC AUTO DIFFon 09-16-2022 BASO # 0.0 103/ul Normal 0.0-0.1 [facility] Comment on above: Performed By: #### C BC #### [facility] [address] [place] [address] Dr. Sumeet Guerra Basophils/100 WBC (Bld) 0.4 % Normal 0.2-2.0 [facility] Comment on above: Performed By: #### C BC #### [facility] [address] [place] [address] Dr. Sumeet Guerra EO # 0.1 103/ul Normal 0.0-0.7 [facility] Comment on above: Performed By: #### C BC #### [facility] [address] [place] [address] Dr. Sumeet Guerra Eosinophils/100 WBC (Bld) 1.7 % Normal 0.9-7.0 [facility] Comment on above: Performed By: #### C BC #### [facility] [address] [place] [address] Dr. Sumeet Guerra Erythrocyte distribution width (RBC) [Ratio] 12.9 % Normal 11.0-15.0 [facility] Comment on above: Performed By: #### C BC #### [facility] [address] [place] [address] Dr. Sumeet Guerra Hematocrit (Bld) [Volume fraction] 39.8 % Normal 36.0-48.0 [facility] Comment on above: Performed By: #### C BC #### [facility] [address] [place] [address] Dr. Sumeet Guerra Hemoglobin (Bld) [Mass/Vol] 12.9 g/dL Normal 12.0-16.0 [facility] Comment on above: Performed By: #### C BC #### [facility] [address] [place] [address] Dr. Sumeet Guerra IG # 0.02 10e3/ul Normal 0.00-0.03 [facility] Comment on above: Performed By: #### C BC #### [facility] [address] [place] [address] Dr. Sumeet Guerra IG % 0.3 % Normal 0.0-0.5 [facility] Comment on above: Performed By: #### C BC #### [facility] [address] [place] [address] Dr. Sumeet Guerra LYMPH # 2.1 103/ul Normal 1.2-3.8 [facility] Comment on above: Performed By: #### C BC #### [facility] [address] [place] [address] Dr. Sumeet Guerra Lymphocytes/100 WBC (Bld) 26.8 % Normal 20.5-60.0 [facility] Comment on above: Performed By: #### C BC #### [facility] [address] [place] [address] Dr. Sumeet Guerra MANUAL DIFF REQ NO Normal The [facility] Comment on above: Performed By: #### C BC #### [facility] [address] [place] [address] Dr. Sumeet Guerra MCH (RBC) [Entitic mass] 27.7 pg Normal 26.7-34.0 [facility] Comment on above: Performed By: #### C BC #### [facility] [address] [place] [address] Dr. Sumeet Guerra MCHC (RBC) [Mass/Vol] 32.4 g/dL Normal 29.9-35.2 [facility] Comment on above: Performed By: #### C BC #### [facility] [address] [place] [address] Dr. Sumeet Guerra MCV (RBC) [Entitic vol] 85.6 fL Normal 81.0-99.0 [facility] Comment on above: Performed By: #### C BC #### [facility] [address] [address] [address] Sumeet Guerra MONO # 0.6 103/ul Normal 0.3-0.8 [facility] Comment on above: Performed By: #### C BC #### [facility] [address] [place] [address] Dr. Sumeet Guerra Monocytes/100 WBC (Bld) 7.8 % Normal 1.7-12.0 [facility] Comment on above: Performed By: #### C BC #### [facility] [address] [place] [address] Dr. Sumeet Guerra NEUT # 4.9 103/ul Normal 1.4-6.5 [facility] Comment on above: Performed By: #### C BC #### [facility] [address] [place] [address] Dr. Sumeet Guerra Neutrophils/100 WBC (Bld) 63.0 % Normal 43.0-75.0 [facility] Comment on above: Performed By: #### C BC #### [facility] [address] [place] [address] Dr. Sumeet Guerra Platelet mean volume (Bld) [Entitic vol] 11.5 fL Normal 9.5-13.5 [facility] Comment on above: Performed By: #### C BC #### [facility] [address] [place] [address] Dr. Sumeet Guerra PLT 285 103/ul Normal 150-450 [facility] Comment on above: Performed By: #### C BC #### [facility] [address] [place] [address] Dr. Sumeet Guerra RBC 4.65 106/ul Normal 4.20-5.40 [facility] Comment on above: Performed By: #### C BC #### [facility] [address] [place] [address] [address] Sumeet Guerra WBC 7.7 103/ul Normal 4.0-11.0 [facility] Comment on above: Performed By: #### C BC #### [facility] [address] [place] [address] [address] Sumeet Guerra GLYCOHEMOGLOBIN A1Con 2021 ADA RECOMMENDATION SEE BELOW Normal [facility] Comment on above: Result Comment: ADA RECOMMENDED LIMIT 4.0 - 6.0 ADA THERAPEUTIC TARGET < 7.0 ACTION SUGGESTED > 7.0 Performed By: #### A 1C #### [facility] [address] [place] [address] Dr. Sumeet Guerra Glucose [Mass/Vol] 200 mg/dL Normal [facility] Comment on above: Performed By: #### A 1C #### [facility] [address] [place] [address] Dr. Sumeet Guerra HbA1c (Bld) [Mass fraction] 8.6 % Critically high 4.5-6.2 [facility] Comment on above: Performed By: #### A 1C #### [facility] [address] [place] [address] Dr. Sumeet Guerra LIPID PROFILEon 09-16-2022 CHOL-HDL RATIO NORM SEE BELOW Normal [facility] Comment on above: Result Comment: 3.3 - 4.4 LOW RISK 4.4 - 7.1 AVERAGE RISK 7.1 - 11.0 MODERATE RISK >11.0 HIGH RISK Performed By: #### L IPID, CMP #### [facility] [address] [place] [address] Dr. Sumeet Guerra Cholesterol [Mass/Vol] 138 mg/dL Normal <=200 [facility] Comment on above: Performed By: #### L IPID, CMP #### [facility] [address] [place] [address] Dr. Sumeet Guerra Cholesterol in HDL [Mass/Vol] 48 mg/dL Normal 40-60 [facility] Comment on above: Performed By: #### L IPID, CMP #### [facility] [address] [address] [address] Sumeet Guerra Cholesterol in LDL [Mass/Vol] 71.6 mg/dL Normal [facility] Comment on above: Performed By: #### L IPID, CMP #### [facility] [address] [place] [address] Dr. Sumeet Guerra Cholesterol.total/Cho lesterol in HDL [Mass ratio] 2.9 {ratio} Normal [facility] Comment on above: Performed By: #### L IPID, CMP #### [facility] [address] [place] [address] Dr. Sumeet Guerra HDL NORMAL > or = 60 mg/dl - LOW CARDIOVASCULAR RISK <40 mg/dl - HIGH CARDIOVASCULAR RISK Normal [facility] Comment on above: Performed By: #### L IPID, CMP #### [facility] [address] [place] [address] Dr. Sumeet Guerra LDL CALC NORMAL SEE BELOW Normal [facility] Comment on above: Result Comment: <100 mg/dl OPTIMAL 100 - 129 mg/dl NEAR OR ABOVE OPTIMAL 130 - 159 mg/dl BORDERLINE HIGH 160 - 189 mg/dl HIGH >190 mg/dl VERY HIGH Performed By: #### L IPID, CMP #### [facility] [address] [place] [address] Dr. Sumeet Guerra Triglyceride [Mass/Vol] 92 mg/dL Normal <=150 [facility] Comment on above: Performed By: #### L IPID, CMP #### [facility] [address] [place] [address] Dr. Sumeet Guerra VLDL CALC 18.4 mg/dL Normal [facility] Comment on above: Performed By: #### L IPID, CMP #### [facility] [address] [place] [address] Dr. Sumeet Guerra MICROALBUMIN, RAND URon 12-0 mALB 12.7 mg/L Normal <=30.0 [facility] Comment on above: Performed By: #### M ALBR #### [facility] [address] [address] [address] Sumeet Guerra PROF 14(COMP METB)on 022 Albumin [Mass/Vol] 3.9 g/dL Normal 3.4-5.0 [facility] Comment on above: Performed By: #### L IPID, CMP #### [facility] [address] [address] [address] Sumeet Guerra Albumin/Globulin [Mass ratio] 1.1 {ratio} Normal [facility] Comment on above: Performed By: #### L IPID, CMP #### [facility] [address] [address] [address] Sumeet Guerra ALP [Catalytic activity/Vol] 103 U/L Normal 46-116 [facility] Comment on above: Performed By: #### L IPID, CMP #### [facility] [address] [place] [address] Dr. Sumeet Guerra ALT [Catalytic activity/Vol] 45 U/L Normal 14-59 [facility] Comment on above: Performed By: #### L IPID, CMP #### [facility] [address] [place] [address] Dr. Sumeet Guerra Anion gap [Moles/Vol] 12.7 mmol/L Normal [facility] Comment on above: Performed By: #### L IPID, CMP #### [facility] [address] [place] [address] Dr. Sumeet Guerra AST [Catalytic activity/Vol] 31 U/L Normal 15-37 [facility] Comment on above: Performed By: #### L IPID, CMP #### [facility] [address] [place] [address] Dr. Sumeet Guerra Bilirubin [Mass/Vol] 0.8 mg/dL Normal 0.2-1.0 [facility] Comment on above: Performed By: #### L IPID, CMP #### [facility] [address] [address] [address] Sumeet Guerra Calcium [Mass/Vol] 9.3 mg/dL Normal 8.5-10.1 [facility] Comment on above: Performed By: #### L IPID, CMP #### [facility] [address] [address] [address] Sumeet Guerra Chloride [Moles/Vol] 103 mmol/L Normal 98-107 [facility] Comment on above: Performed By: #### L IPID, CMP #### [facility] [address] [address] [address] Sumeet Guerra CO2 [Moles/Vol] 30.3 mmol/L Normal 21.0-32.0 [facility] Comment on above: Performed By: #### L IPID, CMP #### [facility] [address] [address] [address] Sumeet Guerra Creatinine [Mass/Vol] 0.64 mg/dL Normal 0.55-1.02 [facility] Comment on above: Performed By: #### L IPID, CMP #### [facility] [address] [place] [address] Dr. Sumeet Guerra EGFR-AF TAJIK >60 Normal >=60 [facility] Comment on above: Performed By: #### L IPID, CMP #### [facility] [address] [place] [address] Dr. Sumeet Guerra EGFR-NON AF TAJIK >60 Normal >=60 [facility] Comment on above: Performed By: #### L IPID, CMP #### [facility] [address] [place] [address] Dr. Sumeet Guerra Globulin (S) [Mass/Vol] 3.7 g/dL Normal [facility] Comment on above: Performed By: #### L IPID, CMP #### [facility] [address] [address] [address] Sumeet Guerra Glucose [Mass/Vol] 151 mg/dL Critically high 74-106 T [facility] Comment on above: Performed By: #### L IPID, CMP #### [facility] [address] [place] [address] Dr. Sumeet Guerra Potassium [Moles/Vol] 4.0 mmol/L Normal 3.5-5.1 [facility] Comment on above: Performed By: #### L IPID, CMP #### [facility] [address] [address] [address] Sumeet Guerra Protein [Mass/Vol] 7.6 g/dL Normal 6.4-8.2 [facility] Comment on above: Performed By: #### L IPID, CMP #### [facility] [address] [address] [address] Sumeet Guerra Sodium [Moles/Vol] 142 mmol/L Normal 136-145 [facility] Comment on above: Performed By: #### L IPID, CMP #### [facility] [address] [address] [address] Sumeet Guerra Urea nitrogen [Mass/Vol] 17.0 mg/dL Normal 7.0-18.0 [facility] Comment on above: Performed By: #### L IPID, CMP #### [facility] [address] [address] [address] Sumeet Guerra Urea nitrogen/Creatinine [Mass ratio] 26.6 mg/mg Normal [facility] Comment on above: Performed By: #### L IPID, CMP #### [facility] [address] [address] [address] Sumeet Guerra MG MAMM SCREEN 3D MARYCRUZ CADon 08-17-2022 MG MAMM SCREEN 3D MARYCRUZ CAD Patient: RICHARD KEEN Exam Date: 08/17/2022 : 1955 Gender:F Ordering : DR JOAQUINA CONTEH M.D. Admission #: [id number] Family : Order #: [id number] CLICK HERE TO VIEW EXAM RADIOLOGY REPORT [...] prostate cancer at age 68. LOCATION: [facility] BREAST COMPOSITION: Heterogeneously dense,which may obscure small [...] Ardon MD on 08/17/2022 at 12:06 Normal [facility] GLYCOHEMOGLOBIN A1Con 2021 ADA RECOMMENDATION SEE BELOW Normal [facility] Comment on above: Result Comment: ADA RECOMMENDED LIMIT 4.0 - 6.0 ADA THERAPEUTIC TARGET < 7.0 ACTION SUGGESTED > 7.0 Performed By: #### D ATA1C #### [facility] [address] [place] [address] Dr. Sumeet Guerra Glucose [Mass/Vol] 192 mg/dL Normal [facility] Comment on above: Performed By: #### D ATA1C #### [facility] [address] [place] [address] Dr. Sumeet Guerra HbA1c (Bld) [Mass fraction] 8.3 % Critically high 4.5-6.2 [facility] Comment on above: Performed By: #### D ATA1C #### [facility] [address] [place] [address] Dr. Sumeet Guerra Vital Signs Date Time Vital Sign Value Performing Clinician Facility 09-15-2023 08:30-0500 Body height 154.94 cm Joaquina Conteh [facility] Other 09-15-2023 08:30-0500 Body mass index (BMI) [Ratio] 27.58 kg/m2 Joaquina Conteh [facility] Other 09-15-2023 08:30-0500 Body weight 66.23 kg Joaquian Conteh Other [facility] Other 09-15-2023 08:30-0500 Diastolic blood pressure 74 mm[Hg] Joaquina Conteh Other [facility] Other 09-15-2023 08:30-0500 Systolic blood pressure 142 mm[Hg] Joaquina Conteh [facility] Other 07-22-2023 10:30-0400 Body height 154.94 cm Benigno [place] II Other [facility] Other 07-22-2023 10:30-0400 Body mass index (BMI) [Ratio] 28.15 kg/m2 Benigno Andreas II Other [facility] Other 07-22-2023 10:30-0400 Body weight 67.59 kg Benigno Andreas II Other [facility] Other 03-17-2023 08:30-0400 Body height 154.94 cm Joaquina Conteh Other [facility] Other 03-17-2023 08:30-0400 Body mass index (BMI) [Ratio] 28.15 kg/m2 Joaquina Conteh Other [facility] Other 03-17-2023 08:30-0400 Body weight 67.59 kg Joaquina Conteh Other [facility] Other 03-17-2023 08:30-0400 Diastolic blood pressure 80 mm[Hg] Joaquina Conteh Other [facility] Other 03-17-2023 08:30-0400 Systolic blood pressure 152 mm[Hg] Joaquina Conteh [facility] Other Encounters Encounter Date Encounter Type Care Provider Facility Start: 11-04-2023 End: 11-04-2023 ambulatory Benigno Andreas II [facility] Other Start: 11-04-2023 Office outpatient vi sit 15 minutes Benigno Johns II [facility] Start: 09-15-2023 End: 09-15-2023 ambulatory Joaquina Conteh [facility] Other Start: 09-15-2023 Patient encounter procedure Joaquina Conteh [facility] Start: 08-27-2023 End: 08-27-2023 ambulatory Benigno Johns II Facility:[facility] Start: 08-27-2023 End: 08-27-2023 ambulatory MD Joaquina Conteh Work Phone: [facility] Work Phone: Start: 08-27-2023 End: 08-27-2023 Discharged Recurring MD Joaquina Conteh Work Phone: [facility] [place] Start: 07-22-2023 Office outpatient ne w 45 minutes Benigno Johns II [facility] Start: 07-22-2023 End: 07-22-2023 ambulatory Benigno Johns II Facility:[facility] Start: 07-22-2023 End: 07-22-2023 ambulatory MD Benigno Johns II Work Phone: [facility] Work Phone: Start: 07-22-2023 End: 07-22-2023 Patient encounter procedure MD Benigno Johns II Work Phone: [facility] Start: 03-23-2023 End: 03-23-2023 ambulatory Joaquina Conteh Other [facility] Other Start: 03-23-2023 Telephone encounter Joaquina Conteh [facility] Start: 03-17-2023 End: 03-17-2023 ambulatory Joaquina Conteh [facility] Other Start: 03-17-2023 Office outpatient vi sit 15 minutes Joaquina Conteh [facility] Start: 01-13-2023 End: 01-14-2023 ambulatory NONE LISTED REQUEST Facility:[facility] Start: 09-16-2022 Adult health examination Benigno Johns II [facility] Other Start: 09-16-2022 Problem, abnormal examination Benigno Johns II [facility] Other Start: 09-16-2022 End: 09-17-[address] [...] Immunization Date Immunization Notes Care Provider Fa [facility] 08-06-2022 influenza virus vaccine, split virus (incl. purified surface antigen) Benigno Johns II [facility] Other 07-28-2022 COVID-19 Pfizer (Pediatric) Benigno Johns II [facility] Other 07-08-2021 influenza virus vaccine, split virus (incl. purified surface antigen) Benigno Johns II [facility] Other 01-11-2021 COVID-19 Vaccine Pfi zer - Documentation Purposes Only Benigno Johns II [facility] Other 09-03-2020 COVID-19 Vaccine Pfi zer - Documentation Purposes Only Benigno Johns II [facility] Other 08-12-2020 pneumococcal conjuga te vaccine, 13 valent Benigno Johns II [facility] Other 07-26-2020 influenza virus vaccine, split virus (incl. purified surface antigen) Benigno Johns II [facility] Other 07-07-2018 influenza virus vaccine, split virus (incl. purified surface antigen) Benigno Johns II [facility] Other 06-07-2017 diphtheria, tetanus toxoids and acellular pertussis vaccine, unspecified formulation Benigno Johns II [facility] Other Payers Date Payer Category Payer Unknown [id number] 1960 Medicare [id number] 1960 Self-pay 1960 Unknown [id number] 1955 Unknown [id number] .16.84 [id number] 1955 Unknown [id number] Unknown [id number] .16.84 [id number] Unknown [id number] .16.84 [id number] Unknown [id number] 2.16.8 [id number] Unknown [id number] 2.16.8 [id number] Social History Date Type Detail Facility Unknown if ever smoked [facility] Other Sex Assigned At Sex Assigned At Bir th [facility] Other Start: 1955 Sex Assigned At Female F [facility] Medical Equipment Procedure Code Equipment Code Equipment Original Text Equi pment Identifier Dates OneTouch Delica Plus [id number] - Evaluation note 11-04-2023 Note Date & [...] of any breach, fraud, or malicious third alliance party actors and no personal patient information was compromised. [facility] Other Evaluation note 09-15-2023 Note Date & [...] PT and treatment with injection w ortho. [facility] Other Evaluation note 07-22-2023 Note Date & [...] injections well. 6. Follow up 3 months. [facility] Other Evaluation note 03-17-2023 Note Date & [...] A1C - order placed and sent to [facility] Other Evaluation note Note Date & Type Note Facility Evaluation note No Information [facility] Other Evaluation note Note Date & Type Note Facility Evaluation note No assessment information availa ble [facility] Work Phone: History general Narrative - Reported Note Date & Type Note Facility History general Narrative - Reported Type Medical History Asthma Medical History Essential hypertension Medical History Hyperglycemia due to type 2 diabetes mellitus Medical History Elevated lipids Surgical History 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 [employer] [facility]. provides no warranty or guarantee of the accuracy or completeness of information in this document.
== END 2024-08-21 08:26 | disposition home or self-care (01) ==
LOC: MAMMO 08:25
PROVIDERS: PCP Family Medicine; Visit Provider Family Medicine
DX: Z12.31 Encounter for screening mammogram for malignant neoplasm of breast (principal); Z80.42 Family history of malignant neoplasm of prostate
CPT/HCPCS: 77063; 77067

== ENCOUNTER 2024-09-18 09:33 | Outpatient (OUT) | payer MEDICARE, OTHER, SELFPAY ==
[2024-09-18 09:47] LABS: Basophils Percent Auto 0.4 % (0.2-2.0); Eosinophils Absolute Auto 0.1 10^3/uL (0.0-0.7); Eosinophils Percent Auto 1.3 % (0.9-7.0); Hemoglobin 13.9 g/dL (12.0-16.0); Immature Granulocytes Abs Auto 0.01 10^3/uL (0.00-0.03); Immature Granulocytes Pct Auto 0.1 % (0.0-0.5); Lymphocytes Percent Auto 22.4 % (20.5-60.0); Mean Corpuscular HGB Conc 32.3 g/dL (29.9-35.2); Mean Corpuscular Hemoglobin 27.9 pg (26.7-34.0); Mean Corpuscular Volume 86.3 fL (81.0-99.0); Mean Platelet Volume 10.2 fL (9.5-13.5); Monocytes Absolute Auto 0.6 10^3/uL (0.3-0.8); Monocytes Percent Auto 6.3 % (1.7-12.0); Neutrophils Absolute Auto 6.2 10^3/uL (1.4-6.5); Neutrophils Percent Auto 69.5 % (43.0-75.0); Platelet Count 312 10^3/uL (150-450); Red Blood Count 4.98 10^6/uL (4.20-5.40); Red Cell Distribution Width 13.2 % (11.0-15.0); White Blood Count 8.9 10^3/uL (4.0-11.0)
[2024-09-18 10:03] LABS: Anion Gap 13.6; BUN Creatinine Ratio 25.7; Calcium 9.4 mg/dL (8.5-10.1); Carbon Dioxide 28.4 mmol/L (21.0-32.0); Chloride 108 mmol/L (98-107); Estimated GFR (African America >60 (>=60 mL/min/1.73m^2); Estimated GFR (Non-African Ame >60 (>=60 mL/min/1.73m^2); Glucose 114 mg/dL (74-106); Sodium 145 mmol/L (136-145)
[2024-09-18 10:14] LABS: Estimated Average Glucose 157 mg/dL; Glycohemoglobin A1C 7.1 % (4.5-6.2)
== END 2024-09-18 09:34 | disposition home or self-care (01) ==
LOC: LAB 09:35
PROVIDERS: PCP Family Medicine; Visit Provider Family Medicine
DX: D64.9 Anemia, unspecified (principal); E11.65 Type 2 diabetes mellitus with hyperglycemia; I10 Essential (primary) hypertension
CPT/HCPCS: 36415; 80048; 83036; 85025

== ENCOUNTER 2025-03-19 09:34 | Outpatient (OUT) | payer MEDICARE, OTHER, SELFPAY ==
--- OUTSIDE RECORDS SUMMARY | 2025-03-19 09:55 | XMS_ITS | CCD ---
Author Organization [facility] CliniSyky Care Team Providers Care Data Management Consultant Name Role Phone REQUEST, NONE LISTED Attending Unavaila ble REQUEST, NONE LISTED Consulting Unavaila ble REQUEST, DR KANG LISTED Admitting Unavaila ble HARRELL, DR JOAQUINA Perrin Primary Care Unavailable HARRELL, DR JOAQUINA Perrin Admitting Unavailable HARRELL, DR JOAQUINA Perrin Attending Unavailable HARRELL, DR JOAQUINA Perrin Consulting Unavailable HARRELL, DR JOAQUINA Perrin Primary Care Unavailable HARRELL, DR JOAQUINA Perrin Attending Unavailable WEST, DR SUSAN Fountain Consulting Unavailable HARRELL, DR JOAQUINA Perrin Primary Care Unavailable HARRELL, DR JOAQUINA Perrin Admitting Unavailable HARRELL, DR JOAQUINA Perrin Consulting Unavailable REQUEST, NONE LISTED Admitting Unavaila ble REQUEST, NONE LISTED Attending Unavaila ble REQUEST, DR KANG LISTED Consulting Unavaila ble HARRELL, DR JOAQUINA Perrin Primary Care Unavailable Joaquina Harrell Unavailable MD Benigno Johns II Attending Provider [phone] Benigno Johns II Unavailable [phone] MD Benigno Johns II Attending Provider [phone] MD Joaquina Harrell Primary Care Provider [phone] Joaquina Harrell MD Primary Care Provider [phone] Simone Calero MD Attending Provider Simone Calero Attending Unavailable Simone Calero Admitting Unavailable Joaquina Harrell Primary Care Unavailable Allergies Allergy Classification Reported Allergen(s) Allergy Type Date of Onset Reaction(s) Facility (3 sources) patient allergy list reviewed by nurse or physicia Propensity to adverse reactions 8 Comment:Done InCast Other (3 sources) Allergies Reconciled Propensity to adverse reactions Unknown InCast Other Medications Current Medications Medication Drug Class(es) Dates Sig (Normalized) Sig (Original) [id number] 200 actuat albuterol 0.09 mg/actuat metered dose inhaler (7 sources) beta2-Adrenergic Agonist Start: 03-16-2024 take 1 puff(s) by inhalation every four hours as needed for wheezing Albuterol Sulfate 90 mcg/actuation HFA aerosol inhaler Active 2 PUFF INHALATION Every 4 hours as needed for shortness of breath or wheezing 8.5 March 16, 2024 7:47am Start: 03-15-2024 End: 03-16-2024 take 2 puff(s) by inhalation every four hours as needed Albuterol Sulfate 90 mcg/actuation HFA aerosol inhaler Discontinued INHALATION March 14, 2024 11:00pm March 16, 2024 7:48am FreeTextSig: IHALE 2 PUFFS EVERY 4 HOURS NEEDED FOR 30 DAYS; Note: Source Status: Taking; Refills: 3; Qty: 18 Each; Provider: Yady Kunz ( ) Albuterol Sulfat e HFA 108 (90 Base) MCG/ACT IHALE 2 PUFFS EVERY 4 HOURS NEEDED FOR 30 DAYS for 30 Active Albuterol Sulfat e HFA 108 (90 Base) MCG/ACT IHALE 2 PUFFS EVERY 4 HOURS NEEDED FOR 30 DAYS for 30 Active Albuterol Sulfat e HFA 108 (90 Base) MCG/ACT IHALE 2 PUFFS EVERY 4 HOURS NEEDED FOR 30 DAYS for 30 Active empagliflozin 10 mg oral tablet (5 sources) Sodium-Glucose Cotransporter 2 Inhibitor Start: 05-24-2024 End: 10-17-2024 take 1 tablet by mouth once daily Empagliflozin (Jardiance) 10 mg tablet Active 0 .ROUTE .COMPLEX October 17, 2024 9:56am TAKE 1 TABLET BY MOUTH EVERY DAY Start: 03-26-2024 End: 05-24-2024 take 1 tablet by mouth once daily Empagliflozin 10 mg tablet Discontinued 10 MG PO Daily April 24, 2024 11:42am May 24, 2024 9:30am 120 actuat fluticasone propionate 0.11 mg/actuat metered dose inhaler (5 sources) Corticosteroid take 2 puff(s) by inhalation twice daily Fluticasone Propionate HFA 110 MCG/ACT 2 puffs Inhalation Twice a day for 90 days Active Fluticasone Propionate 110 mcg/actuation HFA aerosol inhaler (1 source) Start: 03-15-2024 take 2 puff(s) by inhalation twice daily Fluticasone Propionate 110 mcg/actuation HFA aerosol inhaler Active 2 PUFF INHALATION Twice daily March 14, 2024 11:00pm FreeTextSi puffs Inhalation Twice a day; Note: Source Status: Start; Refills: 3; Provider: Yady Perrin glipiZIDE er 10 mg 24 hr extended release oral tablet (4 sources) Sulfonylurea Start: 05-15-2024 take 1 tablet by mouth once daily at breakfast Glipizide 10 mg tablet extended release 24hr Active 0 .ROUTE .COMPLEX May 15, 2024 8:43am TAKE 1 TABLET BY MOUTH EVERY DAY WITH BREAKFAST Start: 03-15-2024 End: 05-15-2024 take 1 tablet by mouth once daily at breakfast Glipizide 10 mg tablet extended release 24hr Discontinued 1 TAB PO Daily March 14, 2024 11:00pm May 15, 2024 8:43am FreeTextSi tablet with breakfast Orally Once a day; Note: Source Status: Refill; Provider: Yady Perrin Start: 09-15-2023 take 1 tablet by kristie th every twenty-four hours glipiZIDE XL 10 MG 1 tablet with breakfast Orally Once a day for 30 day(s) Sep, Active glyBURIDE 5 mg oral tablet (3 sources) Sulfonylurea take 1 tablet by mouth once daily glyBURIDE 5 MG TAKE 1 TABLET BY MOUTH EVERY DAY for 90 Active lisinopril 20 mg oral tablet (7 sources) Angiotensin Converting Enzyme Inhibitor Start: take 1 tablet by mouth once daily Lisinopril 20 mg tablet Active 0 .ROUTE .COMPLEX May 15, 2024 8:43am TAKE 1 TABLET BY MOUTH EVERY DAY Start: 03-15-2024 End: 05-15-2024 take 1 tablet by mouth once daily Lisinopril 20 mg tablet Discontinued 1 TAB PO Daily March 14, 2024 11:00pm May 15, 2024 8:43am FreeTextSig: TAKE 1 TABLET BY MOUTH EVERY DAY; Note: Source Status: Taking; Refills: 3; Qty: 90 Tablet; Provider: Yady Kunz ( ) take 1 tablet by kristie th once daily Lisinopril 20 MG TAKE 1 TABLET BY MOUTH EVERY DAY for 90 Active metFORMIN hydrochloride 1000 mg oral tablet (6 sources) Biguanide Start: 03-15-2024 take 1 tablet by mouth twice daily Metformin 1,000 mg tablet Active 1 TAB PO Twice daily March 14, 2024 11:00pm FreeTextSig: TAKE 1 TABLET BY MOUTH TWICE A DAY; Note: Source Status: Taking; Refills: 3; Qty: 180 Tablet; Provider: Yady Kunz ( ) take 1 tablet by mouth twice johnathon ly metFORMIN HCl 1000 MG TAKE 1 TABLET BY MOUTH TWICE A DAY for 90 Active OneTouch Ultra - (3 sources) OneTouch Ultra - USE 1 STRIP DAILY TO TEST BLOOD SUGAR for 90 Active simvastatin 40 mg oral tablet (7 sources) HMG-CoA Reductase Inhibitor Start: 06-26-2024 take 1 tablet by mouth once daily Simvastatin 40 mg tablet Active 0 .ROUTE .COMPLEX 90 June 26, 2024 9:20am TAKE 1 TABLET BY MOUTH EVERY DAY Start: 03-15-2024 End: 06-26-2024 take 1 tablet by mouth once daily Simvastatin 40 mg tablet Discontinued 1 TAB PO Daily March 14, 2024 11:00pm June 26, 2024 9:20am FreeTextSig: TAKE 1 TABLET BY MOUTH EVERY DAY; Note: Source Status: Start; Refills: 2; Qty: 90 Tablet; Provider: Yady Kunz ( ) take 1 tablet by kristie th once daily Simvastatin 40 MG TAKE 1 TABLET BY MOUTH EVERY DAY for 90 Active Completed/Discontinued Medications Medication Drug Class(es) Dates Sig (Normalized) Sig (Original) triamcinolone acetonide 40 mg/ml injectable suspension (6 sources) Corticosteroid Start: 07-22-2023 Kenalog-40 Jul, 40 mg Start: 07-22-2023 Kenalog-40 Jul, 80 mg Problems Active Problems Problem Classification Problem Date Documented Da te Episodic/Chronic Asthma (9 sources) Asthma; Translations: [Unspecified asthma, uncomplicated] Onset: 02-20-2014 Chronic Deficiency and other anemia (1 source) Anemia; Translations: [Anemia, unspecified] 03-26-2024 Episodic Deficiency and other anemia (1 source) Anemia, unspecified; Translations: [Anemia, unspecified] 09-18-2024 Episodic Diabetes mellitus with complications (11 sources) Type 2 diabetes mellitus with hyperglycemia; [...] lipid profile] Onset: 02-20-2014 Chronic Essential hypertension (10 sources) Essential hypertension; Translations: [Essential (primary) hypertension] Onset: 02-20-2014 Chronic Immunizations and screening for infectious disease (1 source) Vaccination given; Translations: [Encounter for immunization] Episodic Osteoarthritis (8 sources) Primary gonarthrosis, bilateral; Translations: [Bilateral primary osteoarthritis of knee] Chronic Other circulatory disease (1 source) Elevated blood-pressure reading without diagnosis of hypertension; Translations: [Elevated blood-pressure reading, without diagnosis of hypertension] Episodic Other gastrointestinal disorders (1 source) Stool DNA-based colorectal cancer screening positive; Translations: [Other fecal abnormalities] 10-02-2024 Episodic Other injuries and conditions due to [...] index (BMI) 27.0-27.9, adult] Onset: 02-16-2018 Episodic Other screening for suspected conditions (not mental disorders or infectious disease) (7 sources) Encounter for screening mammogram for malignant neoplasm of breast; Translations: [Patient encounter status] Onset: 08-17-2022 Episodic Past or Other Problems Problem Classification Problem Date Documented Date Episodic/Chronic Other non-traumatic joint disorders (1 source) Arthralgia of the lower leg; Translations: [Pain in joint, lower leg] Onset: 06-08-2018 Episodic Residual codes; unclassified (1 source) Family history of malignant neoplasm of other organs or systems; Translations: [FAM HX MALIG NEOPLASM OTH ORGN/SYS] Onset: 08-22-2022 Episodic Unclassified (1 source) Vaccine product containing only acellular Bordetella pertussis and Clostridium tetani and Corynebacterium diphtheriae antigens (medicinal product); Translations: [Pkodogxonh-bjvypkn-b ertussis, combined [DTP] [DtaP]] Onset: 06-07-2017 Results Test Name Value Interpretation Reference Range Facility Glucose Glucometer (dC) [M ass/Vol]Ordered By: Simone Calero on 10-30-2024 Glucose [Mass/Vol] Capillary blood glucose measurement by glucometer (mass/volume) [facility] Comment on above: Random Glucose Refer ence Range is dependent on time and content of last meal. Glucose of more than 200 mg/dL in a nonstressed, ambulatory subject supports the diagnosis of Diabetes Mellitus. Glucose Poct Glucometerson 0 10-30-2024 Glucose [Mass/Vol] 159 mg/dL Normal [facility] Comment on above: Result Comment: [place] Glucose Reference Range is dependent on time and content of last meal. Glucose of more than 200 mg/dL in a nonstressed, ambulatory subject supports the diagnosis of Diabetes Mellitus. PERFORMED BY: [facility] [address] [place] [address] PATHOLOGIST HOME PERFORMANCE CONSULTANT BETTYE CASTLE M.D. Performed By: #### G DOMO #### Point of Care testing , Paul 10-30-2024 L Specimen: [id number] Received: 10/30/24 Status: ZEE Valdez Num: [id number] Spec Type: Surgical Subm Dr: Simone Calero MD Tissues: A Colon Biopsy (SIGMOID POLYP) Procedures: HE/2, Gross/Micro L4 Age/ Patient Sex Location Account Attending Physician Jyothi Keen 69/F [id number] Simone Calero MD SPEC NUM: [id number] RECD: 10/30/24 STATUS: ZEE VALDEZ NUM: [id number] ZOILA: 10/30/[address] [facility] DR: Simone Calero MD ENTERED: 10/30/[address] [facility] [address]: SANDRA TYPE: Surgical DEPT: S ENTERED BY: [id number] RECV BY: [id number] ORDERED: HE/2, Gross/Micro L4 ORDERED: HE/2, Gross/Micro L4 Pathological Diagnosis Sigmoid polyp: Hyperplastic polyp. Clinical Information Positive Cologuard Gross Description Part A is received in formalin labeled with the patients name, date of , and sigmoid polyp is a carrillo-guido, focally erythematous, friable, 0.5 cm in greatest dimension polypoid fragment. The specimen is entirely submitted in a single cassette. (1, ns, [id number]) CPT Codes 74534 Specimen: [id number] Received: 10/30/24 Status: ZEE Cheemaroshan Num: [id number] Spec Type: Surgical Subm Dr: Simone Calero MD Tissues: A Colon Biopsy (SIGMOID POLYP) Procedures: Mel GREENBERG/Tom L4 Patient: Jyothi Keen [id number] (Continued) Signed (signature on file) Mechelle Henderson MD 10/31/24 1300 Normal [facility] Basophils Auto (Bld) [#/Vol] on 09-18-2024 Basophils (Bld) [#/Vol] Automated basophil count 0.0-0.1 [facility] Basophils/100 WBC Auto (Bld) on 09-18-2024 Basophils/100 WBC (Bld) Automated basophil % 0.2-2.0 [facility] Eosinophils/100 WBC Auto (Bl d)on 09-18-2024 Eosinophils/100 WBC (Bld) Automated eosinophil % 0.9-7.0 [facility] Erythrocyte distribution wid th Auto (RBC) [Ratio]on 09-18-2024 Erythrocyte distribution width (RBC) [Ratio] Erythrocyte distribution width [Ratio] by Automated count 11.0-15.0 [facility] Estimated glomerular filtrat ion rate (GFR) non- Americanon 09-18-2024 GFR/1.73 sq M.predicted among non-blacks MDRD (S/P/Bld) [Vol rate/Area] Estimated glomerular filtration rate (GFR) non- >=60 mL/min/1.73m 2 [facility] Glucose mean value [Mass/vol ume] in Blood Estimated from glycated hemoglobinon 09-18-2024 Average glucose Estimated from glycated hemoglobin (Bld) [Mass/Vol] Glucose mean value [Mass/volume] in Blood Estimated from glycated hemoglobin [facility] Hematocrit Auto (Bld) [Volum e fraction]on 09-18-2024 Hematocrit (Bld) [Volume fraction] Hematocrit [Volume Fraction] of Blood by Automated count 36.0-48.0 [facility] Hemoglobin [Mass/volume] in Bloodon 09-18-2024 Hemoglobin (Bld) [Mass/Vol] Hemoglobin [Mass/volume] in Blood 12.0-16.0 [facility] Laboratory - Chemistry and C hemistry - challengeon 09-18-2024 Calcium [Mass/Vol] 9.4 mg/dL 8.5-10.1 [facility] Chloride [Moles/Vol] 108 mmol/L High 98-107 [facility] CO2 [Moles/Vol] 28.4 mmol/L 21.0-32.0 [facility] Creatinine [Mass/Vol] 0.74 mg/dL 0.55-1.02 [facility] GFR/1.73 sq M.predicted MDRD (S/P/Bld) [Vol rate/Area] mL/min/{1.73_m2} >=60 mL/min/1.73m 2 [facility] Glucose [Mass/Vol] 114 mg/dL High 74-106 [facility] Potassium [Moles/Vol] 5.0 mmol/L 3.5-5.1 [facility] Sodium [Moles/Vol] 145 mmol/L 136-145 [facility] Urea nitrogen [Mass/Vol] 19.0 mg/dL High 7.0-18.0 [facility] Urea nitrogen/Creatinine [Mass ratio] 25.7 mg/mg [facility] Laboratory - Hematology and Cell countson 09-18-2024 HbA1c (Bld) [Mass fraction] 7.1 % High 4.5-6.2 [facility] Comment on above: ADA RECOMMENDED LIMI T 4.0 - 6.0ADA THERAPEUTIC TARGET < 7.0ACTION SUGGESTED> 7.0 Immature granulocytes/100 WBC (Bld) 0.1 % 0.0-0.5 [facility] Leukocytes [#/volume] correc jarred for nucleated erythrocytes in Blood by Automated counon 09-18-2024 WBC corrected for nucl RBC Auto (Bld) [#/Vol] Leukocytes [#/volume] corrected for nucleated erythrocytes in Blood by Automated coun 4.0-11.0 [facility] Lymphocytes Auto (Bld) [#/Vo l]on 09-18-2024 Lymphocytes (Bld) [#/Vol] Lymphocytes [#/volume] in Blood by Automated count 1.2-3.8 [facility] Lymphocytes/100 WBC Auto (Bl d)on 09-18-2024 Lymphocytes/100 WBC (Bld) Lymphocytes/100 leukocytes in Blood by Automated count 20.5-60.0 [facility] MCH Auto (RBC) [Entitic mass ]on 09-18-2024 MCH (RBC) [Entitic mass] MCH [Entitic mass] by Automated count 26.7-34.0 [facility] MCHC Auto (RBC) [Mass/Vol]on 09-18-2024 MCHC (RBC) [Mass/Vol] MCHC [Mass/volume] by Automated count 29.9-35.2 [facility] MCV Auto (RBC) [Entitic vol] on 09-18-2024 MCV (RBC) [Entitic vol] MCV [Entitic volume] by Automated count 81.0-99.0 [facility] Monocytes Auto (Bld) [#/Vol] on 09-18-2024 Monocytes (Bld) [#/Vol] Automated blood monocyte count 0.3-0.8 [facility] Monocytes/100 WBC Auto (Bld) on 09-18-2024 Monocytes/100 WBC (Bld) Automated monocyte % 1.7-12.0 [facility] Neutrophils Auto (Bld) [#/Vo l]on 09-18-2024 Neutrophils (Bld) [#/Vol] Neutrophils [#/volume] in Blood by Automated count 1.4-6.5 [facility] Neutrophils/100 WBC Auto (Bl d)on 09-18-2024 Neutrophils/100 WBC (Bld) Automated neutrophil % 43.0-75.0 [facility] No Panel Informationon 09-18 Eosinophils # (Auto) 0.1 10 3/uL 0.0-0.7 [facility] Immature Granulocyte # (Auto) 0.01 10 3/uL 0.00-0.03 [facility] Platelet mean volume Auto (B ld) [Entitic vol]on 09-18-2024 Platelet mean volume (Bld) [Entitic vol] Platelet mean volume [Entitic volume] in Blood by Automated count 9.5-13.5 [facility] Platelets Auto (Bld) [#/Vol] on 09-18-2024 Platelets (Bld) [#/Vol] Platelets [#/volume] in Blood by Automated count 150-450 [facility] RBC Auto (Bld) [#/Vol]on RBC (Bld) [#/Vol] Erythrocytes [#/volume] in Blood by Automated count 4.20-5.40 [facility] Serum or plasma anion gap de terminationon 09-18-2024 Anion gap [Moles/Vol] Serum or plasma anion gap determination [facility] GLYCOHEMOGLOBIN A1Con 2022 ADA RECOMMENDATION SEE BELOW Normal [facility] Comment on above: Result Comment: ADA RECOMMENDED LIMIT 4.0 - 6.0 ADA THERAPEUTIC TARGET < 7.0 ACTION SUGGESTED > 7.0 Performed By: #### D ATA1C #### [facility] [address] [place] [address] Dr. Sumeet Guerra Glucose [Mass/Vol] 154 mg/dL Normal [facility] Comment on above: Performed By: #### D ATA1C #### [facility] [address] [place] [address] Dr. Sumeet Guerra HbA1c (Bld) [Mass fraction] 7.0 % Critically high 4.5-6.2 [facility] Comment on above: Performed By: #### D ATA1C #### [facility] [address] [place] [address] Dr. Sumeet Guerra CBC AUTO DIFFon 09-16-2022 BASO # 0.0 103/ul Normal 0.0-0.1 [facility] Comment on above: Performed By: #### C BC #### [facility] [address] [place] [address] Dr. Sumeet Guerra Basophils/100 WBC (Bld) 0.4 % Normal 0.2-2.0 [facility] Comment on above: Performed By: #### C BC #### [facility] [address] [place] [address] Dr. Sumeet Guerra EO # 0.1 103/ul Normal 0.0-0.7 [facility] Comment on above: Performed By: #### C BC #### [facility] [address] [place] [address] Dr. Sumeet Guerra Eosinophils/100 WBC (Bld) 1.7 % Normal 0.9-7.0 [facility] Comment on above: Performed By: #### C BC #### [facility] [address] [place] [address] Dr. Sumeet Guerra Erythrocyte distribution width (RBC) [Ratio] 12.9 % Normal 11.0-15.0 [facility] Comment on above: Performed By: #### C BC #### [facility] [address] [place] [address] Dr. Sumeet Guerra Hematocrit (Bld) [Volume fraction] 39.8 % Normal 36.0-48.0 [facility] Comment on above: Performed By: #### C BC #### [facility] [address] [place] [address] Dr. Sumeet Guerra Hemoglobin (Bld) [Mass/Vol] 12.9 g/dL Normal 12.0-16.0 [facility] Comment on above: Performed By: #### C BC #### [facility] [address] [place] [address] Dr. Sumeet Guerra IG # 0.02 10e3/ul Normal 0.00-0.03 [facility] Comment on above: Performed By: #### C BC #### [facility] [address] [place] [address] Dr. Sumeet Guerra IG % 0.3 % Normal 0.0-0.5 [facility] Comment on above: Performed By: #### C BC #### [facility] [address] [place] [address] Dr. Sumeet Guerra LYMPH # 2.1 103/ul Normal 1.2-3.8 [facility] Comment on above: Performed By: #### C BC #### [facility] [address] [place] [address] Dr. Sumeet Guerra Lymphocytes/100 WBC (Bld) 26.8 % Normal 20.5-60.0 [facility] Comment on above: Performed By: #### C BC #### [facility] [address] [place] [address] Dr. Sumeet Guerra MANUAL DIFF REQ NO Normal [facility] Comment on above: Performed By: #### C BC #### [facility] [address] [place] [address] Dr. Sumeet Guerra MCH (RBC) [Entitic mass] 27.7 pg Normal 26.7-34.0 [facility] Comment on above: Performed By: #### C BC #### [facility] [address] [place] [address] Dr. Sumeet Guerra MCHC (RBC) [Mass/Vol] 32.4 g/dL Normal 29.9-35.2 [facility] Comment on above: Performed By: #### C BC #### [facility] [address] [place] [address] Dr. Sumeet Guerra MCV (RBC) [Entitic vol] 85.6 fL Normal 81.0-99.0 [facility] Comment on above: Performed By: #### C BC #### [facility] [address] [place] [address] Dr. Sumeet Guerra MONO # 0.6 103/ul Normal 0.3-0.8 [facility] Comment on above: Performed By: #### C BC #### [facility] [address] [place] [address] Dr. Sumeet Guerra Monocytes/100 WBC (Bld) 7.8 % Normal 1.7-12.0 [facility] Comment on above: Performed By: #### C BC #### [facility] [address] [place] [address] Dr. Sumeet Guerra NEUT # 4.9 103/ul Normal 1.4-6.5 [facility] Comment on above: Performed By: #### C BC #### [facility] [address] [place] [address] Dr. Sumeet Guerra Neutrophils/100 WBC (Bld) 63.0 % Normal 43.0-75.0 [facility] Comment on above: Performed By: #### C BC #### [facility] [address] [place] [address] Dr. Sumeet Guerra Platelet mean volume (Bld) [Entitic vol] 11.5 fL Normal 9.5-13.5 [facility] Comment on above: Performed By: #### C BC #### [facility] [address] [place] [address] Dr. Sumeet Guerra PLT 285 103/ul Normal 150-450 [facility] Comment on above: Performed By: #### C BC #### [facility] [address] [place] [address] Dr. Sumeet Guerra RBC 4.65 106/ul Normal 4.20-5.40 [facility] Comment on above: Performed By: #### C BC #### [facility] [address] [address] [address] Sumeet Guerra WBC 7.7 103/ul Normal 4.0-11.0 [facility] Comment on above: Performed By: #### C BC #### [facility] [address] [place] [address] Dr. Sumeet Guerra GLYCOHEMOGLOBIN A1Con 2021 ADA RECOMMENDATION SEE BELOW Normal [facility] Comment on above: Result Comment: ADA RECOMMENDED LIMIT 4.0 - 6.0 ADA THERAPEUTIC TARGET < 7.0 ACTION SUGGESTED > 7.0 Performed By: #### A 1C #### [facility] [address] [place] [address] Dr. Sumeet Guerra Glucose [Mass/Vol] 200 mg/dL Normal [facility] Comment on above: Performed By: #### A 1C #### [facility] [address] [place] [address] Dr. Sumeet Guerra HbA1c (Bld) [Mass fraction] 8.6 % Critically high 4.5-6.2 [facility] Comment on above: Performed By: #### A 1C #### [facility] [address] [place] [address] Dr. Sumeet Guerra LIPID PROFILEon 09-16-2022 CHOL-HDL RATIO NORM SEE BELOW Normal [facility] Comment on above: Result Comment: 3.3 - 4.4 LOW RISK 4.4 - 7.1 AVERAGE RISK 7.1 - 11.0 MODERATE RISK >11.0 HIGH RISK Performed By: #### L IPID, CMP #### [facility] [address] [place] [address] Dr. Sumeet Guerra Cholesterol [Mass/Vol] 138 mg/dL Normal <=200 [facility] Comment on above: Performed By: #### L IPID, CMP #### [facility] [address] [place] [address] Dr. Sumeet Guerra Cholesterol in HDL [Mass/Vol] 48 mg/dL Normal 40-60 [facility] Comment on above: Performed By: #### L IPID, CMP #### [facility] [address] [address] [address] Sumeet Guerra Cholesterol in LDL [Mass/Vol] 71.6 mg/dL Normal [facility] Comment on above: Performed By: #### L IPID, CMP #### [facility] [address] [address] [address] Sumeet Guerra Cholesterol.total/Cho lesterol in HDL [Mass ratio] 2.9 {ratio} Normal [facility] Comment on above: Performed By: #### L IPID, CMP #### [facility] [address] [address] [address] Sumeet Guerra HDL NORMAL > or = 60 mg/dl - LOW CARDIOVASCULAR RISK <40 mg/dl - HIGH CARDIOVASCULAR RISK Normal [facility] Comment on above: Performed By: #### L IPID, CMP #### [facility] [address] [place] [address] Dr. Sumeet Guerra LDL CALC NORMAL SEE BELOW Normal [facility] Comment on above: Result Comment: <100 mg/dl OPTIMAL 100 - 129 mg/dl NEAR OR ABOVE OPTIMAL 130 - 159 mg/dl BORDERLINE HIGH 160 - 189 mg/dl HIGH >190 mg/dl VERY HIGH Performed By: #### L IPID, CMP #### [facility] [address] [place] [address] Dr. Sumeet Guerra Triglyceride [Mass/Vol] 92 mg/dL Normal <=150 [facility] Comment on above: Performed By: #### L IPID, CMP #### [facility] [address] [address] [address] Sumeet Guerra VLDL CALC 18.4 mg/dL Normal [facility] Comment on above: Performed By: #### L IPID, CMP #### [facility] [address] [place] [address] Dr. Sumeet Guerra MICROALBUMIN, RAND URon 12-0 mALB 12.7 mg/L Normal <=30.0 [facility] Comment on above: Performed By: #### M ALBR #### [facility] [address] [place] [address] Dr. Sumeet Guerra PROF 14(COMP METB)on 022 Albumin [Mass/Vol] 3.9 g/dL Normal 3.4-5.0 [facility] Comment on above: Performed By: #### L IPID, CMP #### [facility] [address] [address] [address] Sumeet Guerra Albumin/Globulin [Mass ratio] 1.1 {ratio} Normal [facility] Comment on above: Performed By: #### L IPID, CMP #### [facility] [address] [address] [address] Sumeet Guerra ALP [Catalytic activity/Vol] 103 U/L Normal 46-116 [facility] Comment on above: Performed By: #### L IPID, CMP #### [facility] [address] [address] [address] Sumeet Guerra ALT [Catalytic activity/Vol] 45 U/L Normal 14-59 [facility] Comment on above: Performed By: #### L IPID, CMP #### [facility] [address] [address] [address] Sumeet Guerra Anion gap [Moles/Vol] 12.7 mmol/L Normal [facility] Comment on above: Performed By: #### L IPID, CMP #### [facility] [address] [address] [address] Sumeet Guerra AST [Catalytic activity/Vol] 31 U/L Normal 15-37 [facility] Comment on above: Performed By: #### L IPID, CMP #### [facility] [address] [address] [address] Sumeet Guerra Bilirubin [Mass/Vol] 0.8 mg/dL Normal 0.2-1.0 [facility] Comment on above: Performed By: #### L IPID, CMP #### [facility] [address] [address] [address] Sumeet Guerra Calcium [Mass/Vol] 9.3 mg/dL Normal 8.5-10.1 [facility] Comment on above: Performed By: #### L IPID, CMP #### [facility] [address] [address] [address] Sumeet Guerra Chloride [Moles/Vol] 103 mmol/L Normal 98-107 [facility] Comment on above: Performed By: #### L IPID, CMP #### [facility] [address] [address] [address] Sumeet Guerra CO2 [Moles/Vol] 30.3 mmol/L Normal 21.0-32.0 [facility] Comment on above: Performed By: #### L IPID, CMP #### [facility] [address] [address] [address] Sumeet Guerra Creatinine [Mass/Vol] 0.64 mg/dL Normal 0.55-1.02 [facility] Comment on above: Performed By: #### L IPID, CMP #### [facility] [address] [place] [address] Dr. Sumeet Guerra EGFR-AF SPANISH >60 Normal >=60 [facility] Comment on above: Performed By: #### L IPID, CMP #### [facility] [address] [address] [address] Sumeet Guerra EGFR-NON AF SPANISH >60 Normal >=60 [facility] Comment on above: Performed By: #### L IPID, CMP #### [facility] [address] [address] [address] Sumeet Guerra Globulin (S) [Mass/Vol] 3.7 g/dL Normal [facility] Comment on above: Performed By: #### L IPID, CMP #### [facility] [address] [address] [address] Sumeet Guerra Glucose [Mass/Vol] 151 mg/dL Critically high 74-106 [facility] Comment on above: Performed By: #### L IPID, CMP #### [facility] [address] [address] [address] Sumeet Guerra Potassium [Moles/Vol] 4.0 mmol/L Normal 3.5-5.1 [facility] Comment on above: Performed By: #### L IPID, CMP #### [facility] [address] [address] [address] Sumeet Guerra Protein [Mass/Vol] 7.6 g/dL Normal 6.4-8.2 [facility] Comment on above: Performed By: #### L IPID, CMP #### [facility] [address] [address] [address] Sumeet Guerra Sodium [Moles/Vol] 142 mmol/L Normal 136-145 [facility] Comment on above: Performed By: #### L IPID, CMP #### [facility] [address] [address] [address] Sumeet Guerra Urea nitrogen [Mass/Vol] 17.0 mg/dL Normal 7.0-18.0 [facility] Comment on above: Performed By: #### L IPID, CMP #### [facility] [address] [address] [address] Sumeet Guerra Urea nitrogen/Creatinine [Mass ratio] 26.6 mg/mg Normal [facility] Comment on above: Performed By: #### L IPID, CMP #### [facility] [address] [address] [address] Sumeet Guerra MG MAMM SCREEN 3D MARYCRUZ CADon 08-17-2022 MG MAMM SCREEN 3D MARYCRUZ CAD Patient: JYOTHI KEEN Exam Date: 08/17/2022 : 1955 Gender:F Ordering : DR JOAQUINA HARRELL M.D. Admission #: [id number] Family : Order #: [id number] CLICK HERE TO VIEW EXAM RADIOLOGY REPORT [...] prostate cancer at age 68. LOCATION: [facility] BREAST COMPOSITION: Heterogeneously dense,which may obscure small [...] Ardon MD on 08/17/2022 at 12:06 Normal [facility] GLYCOHEMOGLOBIN A1Con 2021 ADA RECOMMENDATION SEE BELOW Normal [facility] Comment on above: Result Comment: ADA RECOMMENDED LIMIT 4.0 - 6.0 ADA THERAPEUTIC TARGET < 7.0 ACTION SUGGESTED > 7.0 Performed By: #### D ATA1C #### [facility] [address] [place] [address] Dr. Sumeet Guerra Glucose [Mass/Vol] 192 mg/dL Normal [facility] Comment on above: Performed By: #### D ATA1C #### [facility] [address] [place] [address] Dr. Sumeet Guerra HbA1c (Bld) [Mass fraction] 8.3 % Critically high 4.5-6.2 [facility] Comment on above: Performed By: #### D ATA1C #### [facility] [address] [place] [address] Dr. Sumeet Guerra Vital Signs Date Time Vital Sign Value Performing Clinician Facility 10-30-2024 10:43-0500 Diastolic blood pressure 75 mm[Hg] Joaquina Harrell MD Work Phone: [facility] 10-30-2024 10:43-0500 Heart rate 80 /min Joaquina Harrell MD Work Phone: [facility] 10-30-2024 10:43-0500 Respiratory rate 16 /min Joaquina Harrell MD Work Phone: [facility] 10-30-2024 10:43-0500 SaO2% (BldA) [Mass fraction] 98 % Joaquina Harrell MD Work Phone: [facility] 10-30-2024 10:43-0500 Systolic blood pressure 135 mm[Hg] Joaquina Harrell MD Work Phone: [facility] 10-30-2024 09:21-0500 Body height 156.21 cm Joaquina Harrell MD Work Phone: [facility] 10-30-2024 09:21-0500 Body weight 63.5 kg Joaquina Harrell MD Work Phone: [facility] 09-18-2024 09:01-0500 Body height 154.94 cm Joaquina Harrell MD Work Phone: [facility] 09-18-2024 09:01-0500 Body mass index (BMI) [Ratio] 26.4 kg/m2 Joaquina Harrell MD Work Phone: [facility] 09-18-2024 09:01-0500 Body weight 63.5 kg Joaquina Harrell MD Work Phone: [facility] 09-18-2024 09:01-0500 Diastolic blood pressure 74 mm[Hg] Joaquina Harrell MD Work Phone: [facility] 09-18-2024 09:01-0500 Heart rate 80 /min Joaquina Harrell MD Work Phone: [facility] 09-18-2024 09:01-0500 Systolic blood pressure 132 mm[Hg] Joaquina Harrell MD Work Phone: [facility] 09-15-2023 08:30-0500 Body height 154.94 cm Joaquina Harrell Other [facility] [email or web address] Other 09-15-2023 08:30-0500 Body mass index (BMI) [Ratio] 27.58 kg/m2 Joaquina Harrell Other [facility] [employer] Other 09-15-2023 08:30-0500 Body weight 66.23 kg Joaquina Harrell Other [facility] [email or web address] Other 09-15-2023 08:30-0500 Diastolic blood pressure 74 mm[Hg] Joaquina Harrell Other [employer] Other 09-15-2023 08:30-0500 Systolic blood pressure 142 mm[Hg] Joaquina Harrell Other [employer] Other 07-22-2023 10:30-0400 Body height 154.94 cm [employer] Other [employer] Other 07-22-2023 10:30-0400 Body mass index (BMI) [Ratio] 28.15 kg/m2 [employer] Other [employer] Other 07-22-2023 10:30-0400 Body weight 67.59 kg [employer] Other [employer] Other 03-17-2023 08:30-0400 Body height 154.94 cm Joaquina Harrell Other [employer] Other 03-17-2023 08:30-0400 Body mass index (BMI) [Ratio] 28.15 kg/m2 Joaquina Harrell Other [employer] Other 03-17-2023 08:30-0400 Body weight 67.59 kg Joaquina Harrell Other [employer] Other 03-17-2023 08:30-0400 Diastolic blood pressure 80 mm[Hg] Joaquina Harrell Other [employer] Other 03-17-2023 08:30-0400 Systolic blood pressure 152 mm[Hg] Joaquina Harrell Other [employer] Other Encounters Encounter Date Encounter Type Care Provider Facility Start: 10-30-2024 Non-patient / Non-visit Joaquina Harrell MD Work Phone: [facility] Work Phone: Start: 10-30-2024 End: 10-30-2024 Admission to same day surgery center Joaquina Harrell MD Work Phone: [facility] Work Phone: Start: 10-30-2024 End: 10-30-2024 ambulatory Joaquina Harrell MD Work Phone: [facility] Work Phone: Start: 09-21-2024 End: 09-21-2024 Patient encounter procedure Joaquina Harrell MD Work Phone: [facility] Work Phone: Start: 09-18-2024 End: 09-18-2024 Patient encounter procedure Joaquina Harrell MD Work Phone: [facility] Work Phone: Start: 11-04-2023 End: 11-04-2023 ambulatory Benigno Andreas II Other [employer] Other Start: 11-04-2023 Office outpatient vi sit 15 minutes Benigno Andreas II [facility] Start: 09-15-2023 End: 09-15-2023 ambulatory Joaquina Harrell Other [employer] [facility] [employer] Other Start: 09-15-2023 Patient encounter procedure Joaquina Harrell [facility] Start: 08-27-2023 End: 08-27-2023 ambulatory MD Joaquina Harrell Work Phone: [facility] Work Phone: Start: 08-27-2023 End: 08-27-2023 Discharged Recurring MD Joaquina Harrell Work Phone: [facility] [place] Start: 07-22-2023 Office outpatient ne w 45 minutes Benigno Andreas II [facility] Start: 07-22-2023 End: 07-22-2023 ambulatory MD Benigno Johns II Work Phone: [facility] Work Phone: Start: 07-22-2023 End: 07-22-2023 Patient encounter procedure MD Benigno Johns II Work Phone: [facility] Start: 03-23-2023 End: 03-23-2023 ambulatory Joaquina Harrell Other [employer] Other Start: 03-23-2023 Telephone encounter Joaquina Harrell [facility] Start: 03-17-2023 End: 03-17-2023 ambulatory Joaquina Harrell Other [employer] Other Start: 03-17-2023 Office outpatient vi sit 15 minutes Joaquina Harrell [facility] Start: 01-13-2023 End: 01-14-2023 ambulatory NONE LISTED REQUEST Facility:[facility] Start: 09-16-2022 Adult health examination Benigno Johns REYNA Other [employer] Other Start: 09-16-2022 Problem, abnormal examination Benigno Johns II Other [employer] Other Start: 09-16-2022 End: 09-17-[address] JOAQUINA HARRELL Facility:[facility] Start: 08-17-2022 End: 08-18-[address] JOAQUINA HARRELL Facility:[facility] Start: 04-23-2022 End: 04-24-2022 ambulatory NONE LISTED REQUEST Facility:[facility] Procedures Date Procedure Procedure Detail Performing Clinician Start: 10-30-2024 Colonoscopy Joaquina grimes MD Work Phone: Start: 07-22-2023 Pelvis X-ray MD Benigno Johns II Work Phone: Start: 07-22-2023 X-ray of both knees MD Benigno Johns II Work Phone: Start: 06-08-2018 Screening for malign ant neoplasm of colon Benigno Johns II Other Start: 06-07-2017 Screening mammography R philipp Andreas ORELLANA Other Screening for malign ant neoplasm of breast Benigno Johns REYNA Other Plan of Treatment Date Care Activity Detail Author Start: 10-30-2024 [facility] Patient Education Hemorrhoids Co paul polyps Diverticulosis Know your Meds [facility] Work Phone: [facility] Immunizations Immunization Date Immunization Notes Care Provider Fa cility 08-06-2022 influenza virus vaccine, split virus (incl. purified surface antigen) Benigno Mccollumle II Other [facility] [email or web address] Other 08-06-2022 influenza virus vaccine, unspecified formulation Joaquina Harrell MD Work Phone: [facility] 07-28-2022 COVID-19 Pfizer (Pediatric) Benigno Ramirezshalonda ORELLANA Other [facility] 07-08-2021 influenza virus vaccine, split virus (incl. purified surface antigen) Benigno Denali II Other [facility] [employer] Other 07-08-2021 influenza virus vaccine, unspecified formulation Joaquina Harrell MD Work Phone: [facility] 01-11-2021 COVID-19 Vaccine Pfi zer - Documentation Purposes Only Benigno Ramirezisle II Other [facility] 09-03-2020 COVID-19 Vaccine Pfi zer - Documentation Purposes Only Benigno Mccollumle II Other [facility] 08-12-2020 pneumococcal conjuga te vaccine, 13 valent Benigno Johns II Other [facility] 07-26-2020 influenza virus vaccine, split virus (incl. purified surface antigen) Benigno Mccollumle II Other [facility] [email or web address] Other 07-26-2020 influenza virus vaccine, unspecified formulation Joaquina Harrell MD Work Phone: [facility] 07-07-2018 influenza virus vaccine, split virus (incl. purified surface antigen) Benigno Johns II Other [employer] Other 07-07-2018 influenza virus vaccine, unspecified formulation Joaquina Harrell MD Work Phone: [facility] 06-07-2017 diphtheria, tetanus toxoids and acellular pertussis vaccine, unspecified formulation Benigno Johns II Other [facility] Payers Date Payer Category Payer Medicare [id number] 1960 Self-pay 1960 Unknown [id number] 1955 Unknown [id number] [id number] [id number] 1955 Unknown [id number] 2.16.84 [id number] Unknown [id number] 2.16.84 [id number] Unknown [id number] 2.16.84 [id number] Unknown O [id number] 2 [id number] Unknown [id number] 2.16.8 [id number] Social History Date Type Detail Facility Unknown if ever smoked [employer] Other Sex Assigned At Sex Assigned At Bir th [employer] Other Start: 1955 Sex Assigned At Female [facility] Start: 10-30-2024 Tobacco smoking status NHIS Never smoked tobacco (finding) [facility] Start: 10-30-2024 Sex Patient sex un known (finding) [facility] Medical Equipment Procedure Code Equipment Code Equipment Origin al Text Equipment Identifier Dates OneTouch Delica Plus [id number] - Lancets (Onetouc h Delica Plus Lancet) 33 gauge misc Start: 06-28-2024 Blood Sugar Diagnostic (Blood Glucose Test) strip Start: 03-31-2024 End: 03-31-2024 Blood Sugar Diagnostic (Onetouch Ultra Test) strip Start: 03-31-2024 End: 06-28-2024 Goals Date Patient Goal Desired Activity /State Clinical Notes 03-17-2023 to 10-30-2024 Note Date & Type Note Facility 10-30-2024 Procedure note [facility] 10-30-2024 History and physi melody note [facility] 09-18-2024 Evaluation note Diagnosis Onset Date Resolution Anemia acute September 18, 2024 8:57am Colon cancer screening acute 2023 8:57am Essential hypertension acute 2023 8:57am Hyperglycemia due to type 2 diabetes mellitus acute Decee r 2023 8:57am Primary osteoarthritis of both knees acute September 21, 10:37am [facility] Work Phone: [phone]) 849-934301-25-2024 Evaluation note* Encounter Date Diagnosis Assessment Notes Treatment Notes Treatment Clinical Notes Oct, Primary osteoarthritis of both knees [...] of any breach, fraud, or malicious third democrat actors and no personal patient information was compromised. [employer] Other 12-06-2023 Evaluation note* Encounter Date Diagnosis Assessment Notes Treatment Notes Treatment Clinical Notes Sep, Medicare annual wellness visit, subsequent [...] PT and treatment with injection w ortho. [facility] Other 10-12-2023 Evaluation note* Encounter Date Diagnosis Assessment Notes Treatment Notes Treatment Clinical Notes Jul, Pain in right knee (ICD-10 - M25.561) Jul, Pain in left knee (ICD-10 - M25.562) Jul, Primary osteoarthritis of both knees (ICD-10 - M17.0) Jul, Other 1. We had a paul g discussion with the patient today concerning their [...] injections well. 6. Follow up 3 months. [facility] Other 06-07-2023 Evaluation note* Encounter Date Diagnosis Assessment Notes Treatment Notes Treatment Clinical Notes Mar, Asthma (ICD-10 - J45.909) Pt requests refill. Denies increased symptoms with poor air quality. Mar, Essential hypertension (ICD-10 - I10) Elevated today. Discussed increasing dose of lisinopril. Will check home bps for 1 week and call with results. Mar, Elevated lipids (ICD-10 - E78.5) chronic - check labs in Nov. Mar, Hyperglycemia due to type 2 diabetes mellitus (ICD-10 - E11.65) Improved A1C - order placed and sent to [facility] [email or web address] Other Evaluation [facility]No [facility] [employer] Other Evaluation noteNo assessment information available [facility] Work Phone: History and physical note Author Simone Calero [facility] Note Date/Time October 30, 2024 9 :57am [facility] [address] [place] [address] Gastroenterology H&P Signed Patient: Jyothi Keen MR#: [id number] : 1955 Acct:[id number] Age/Sex: 69 / F Adm Date: Loc: Room: Type: [employer] Attending Dr: Simone Calero MD Copies to: MD Joaquina Rosales MD~ Date of Service: 10/30/2024 HISTORY & PHYSICAL: Patient's history with special attention to the cardiovascular, pulmonary systems and the current problem was reviewed with the patient immediately prior to the procedure. Present medications and doses reviewed in the EMR. Allergies and pertinent laboratory tests were also reviewedat this time in the EMR. The physical examination, as below, was then performed. Indication, assessment and HPI: 69-year-old female presents for first-time colonoscopy after having a positive Cologuard test Family history of GI malignancy? no PHYSICAL EXAMINATION Mouth and Pharynx : moist mucus membranes, normal dentition Eyes: EOM intact b/l, normal sclera Pulmonary: normal respiratory effort, able to speak in complete sentences Neurological: alert and oriented x3, moves all extremities Skin: non-jaundiced, warm and dry Abdomen: non-distended, normal to inspection Psych: Mental status and mood grossly normal REVIEW OF SYSTEMS Constitutional: Denies malaise, fevers Cardiovascular: Denies chest pain, palpitations Respiratory: Denies shortness of breath, wheezing Gastrointestinal: Per HPI Genitourinary: Denies dysuria, polyuria Musculoskeletal: Denies joint swelling, joint stiffness Neurological: Denies numbness, tingling Integumentary: Denies rashes, skin lesions Endocrine: Denies fatigue, weight loss Written informed consent obtained from the patient. Risks (including but not limited to perforation, infection, bloating, bleeding, need for emergent surgeryand loss of life), benefits and alternatives explained and questions answered. The patient verbalized understanding. Based on history patient is an appropriate candidate for the procedure. Simone Calero MD Documented By: Simone Calero MD 10/30/24 0956 Signed By: <Electronically signed by Simone Calero MD> 10/30/[address] 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 196 8 Hospitalization History SEE SURGICAL HX [place] [employer] Other Summary Purpose Family History No Family History Records Found Relationship Condition Age at Onset Recorded Date/T pineda father Heart disease Unknown Unknown mother Heart disease Unknown son History of stroke Unknown Advance Directives No Advanced Directives Records Found Advance Directive Response Recorded Date/ Time Advance Directives No July 22, 2023 12:13pm Advance Directive Response Recorded Date/ Time Advance Directives No July 23, 2023 4:39pm Chief Complaint and Reason for Visit Chief Complaint m25.561 m25.562 R & L Knee pain Chief Complaint Admit Date 6 MONTH CHECK UP September 18, 2024 8 :57am OP SP BILAT KNEE PAIN - REQ INJ September 21, 2024 10:37am positive cologuard October 30, 2024 8 :30am positive cologuard October 30, 2024 9 :56am Reason for Visit Admit Date Anemia September 18, 2024 8 :57am Colon cancer screening September 18 8:57am Essential hypertension September 18 8:57am Hyperglycemia due to type 2 diabetes marlen litus September 18, 2024 8:57am Primary osteoarthritis of both knees Dec ember 2023 10:37am Additional Source Comments INFORMATION SOURCE (unrecogn ized section and content) DATE CREATED AUTHOR 01/14/2023 [facility] DATE CREATED AUTHOR AUTHOR'S ORGANIZ ATION 12/06/2024 [facility] REASON FOR VISIT (unrecogniz ed section and content) 6 MONTH FOLLOW UP ACBP readi ngsNP BILAT KNEE PAINWELLNESS3 MONTH FOLLOW UP Care Teams (unrecognized sec tion and content) Team Status: Active Member Role Status Dates Joaquina Harrell MD Primary Care Provider Active Team Status: Inactive Member Role Status Dates Benigno Johns II, MD Attending Provider Active Team Status: Inactive Member Role Status Dates Benigno Johns II, MD Attending Provider Active Joaquina Harrell MD Primary Care Provider Active Team Status: Inactive Member Role Status Dates Joaquina Harrell MD Primary Care Provide r, Attending Provider Active Start: September 18, 2024 End: September 18, 2024 Team Status: Inactive Member Role Status Dates Joaquina Harrell MD Primary Care Provider Active Start: September 21, 2024 End: September 21, 2024 Benigno Johns II, MD Attending Provider Active Start: September 21, 2024 End: September 21, 2024 Team Status: Inactive Member Role Status Dates Joaquina Harrell MD Primary Care Provider Active Start: October 30, 2024 End: October 30, 2024 Simone Calero MD Attending Provider Active S tart: October 30, 2024 End: October 30, 2024 Team Status: Active Member Role Status Dates Joaquina Harrell MD Primary Care Provider Active Start: October 30, 2024 Simone Calero MD Attending Provider, Other Provider Active Start: October 30, 2024 Goals (unrecognized section and content) Goals may [...] BE BASED ON THE PRIMARY CLINICAL RECORDS. [employer] [facility]. provides no warranty or guarantee of the accuracy or completeness of information in this document.
[2025-03-19 10:32] LABS: Anion Gap 14.8; BUN Creatinine Ratio 26.1; Calcium 9.2 mg/dL (8.5-10.1); Carbon Dioxide 28.1 mmol/L (21.0-32.0); Chloride 105 mmol/L (98-107); Chol HDL Ratio 3.4; Cholesterol 164 mg/dL (<=200); Estimated GFR (African America >60 (>=60 mL/min/1.73m^2); Estimated GFR (Non-African Ame >60 (>=60 mL/min/1.73m^2); Glucose 126 mg/dL (74-106); HDL Cholesterol 48 mg/dL (40-60); Potassium 3.9 mmol/L (3.5-5.1); Sodium 144 mmol/L (136-145); Triglycerides 199 mg/dL (<=150); VLDL CHOLESTEROL 39.8 mg/dL
[2025-03-19 10:33] LABS: Creatinine Urine Random 110.06 mg/dL (20.00-300.00); Microalbum Creatinine Ratio Ur 48.1 mg/g (0.0-29.9); Microalbumin Urine Random 5.3 mg/dL (<=30.0)
[2025-03-19 12:13] LABS: Estimated Average Glucose 146 mg/dL; Glycohemoglobin A1C 6.7 % (4.5-6.2)
== END 2025-03-19 09:35 | disposition home or self-care (01) ==
LOC: LAB 09:35
PROVIDERS: PCP Family Medicine; Visit Provider Family Medicine
DX: Z00.00 Encounter for general adult medical examination without abnormal findings (principal); E11.65 Type 2 diabetes mellitus with hyperglycemia; I10 Essential (primary) hypertension
CPT/HCPCS: 36415; 80048; 80061; 82043; 82570; 83036

== ENCOUNTER 2025-08-22 07:24 | Outpatient (OUT) | payer MEDICARE, OTHER, SELFPAY ==
--- NOTE | 2025-08-22 | MM_ITS ---
Patient Name: RICHARD KEEN MR#: [id number] : 1955 Exam Date: 08/22/2025 Ordering Doctor: DR DOUG HARRELL M.D. RADIOLOGY REPORT PROCEDURE: MM TOMOSYNTHESIS SCREENING BI COMPARISON: MM TOMOSYNTHESIS SCREENING BI, 08/21/2024. MM TOMOSYNTHESIS SCREENING BI, 08/18/2023. MG MAMM SCREEN 3D [facility] CAD, 08/17/2022. MG MAMM [facility] SCRN W CAD DIG, 07/13/2013. INDICATIONS: Screening for malignancy of breasts Calculator Name NCI Breast Cancer Risk Assessment Tool 5 Year Breast Cancer Risk 1.40% Lifetime Breast Cancer Risk 4.10% Personal Breast Cancer No Personal Ovarian Cancer No Treatments None Family Cancers Brother with prostate cancer at age 69. LOCATION: [facility] BREAST COMPOSITION: The breasts are heterogeneously dense, which may obscure small masses. FINDINGS: RIGHT BREAST: No significant suspicious finding. Benign-appearing calcifications are present. There are similar focal asymmetries. LEFT BREAST: No significant suspicious finding. Benign-appearing calcifications are present. There are similar focal asymmetries. DIAGNOSTIC CATEGORY 2--BENIGN FINDING. NO CHANGE FROM COMPARISON. RECOMMENDATIONS: ROUTINE MAMMOGRAM AND CLINICAL EVALUATION IN 12 MONTHS. Dictated by: Eliezer Comer MD on 08/22/2025 at 15:40 Approved by: Eliezer Comer MD on 08/22/2025 at 15:44
--- OUTSIDE RECORDS SUMMARY | 2025-08-22 07:27 | XMS_ITS | CCD ---
Author Organization [facility]ini[employer] Care Team Providers Care Sand Polisher Name Role Phone REQUEST, NONE LISTED Attending [...] II Attending Provider Benigno Johns II Unavailable [phone] MD Benigno Johns II Attending Provider MD Joaquina Harrell Primary Care Provider Joaquina Harrell MD Primary Care Provider [phone] Simone Calero MD Attending Provider [phone] Simone Calero Attending Unavailable Simone Calero Admitting Unavailable Joaquina Harrell Primary Care Unavailable Allergies Allergy ClassificationReported Allergen(s)Allergy TypeDate of OnsetReaction(s) Facility (3 sources)patient allergy list reviewed by nurse or physiciaPropensity to adverse -[phone]:[employer] Other (3 sources)Allergies ReconciledPropensity to adverse reactionsFuller HospitalnoBringMeThat Other Medications Current Medications MedicationDrug Class(es)DatesSig (Normalized)Sig (Original)[id number] 200 actuat albuterol 0.09 mg/actuat metered dose inhaler (9 sources)beta2-Adrenergic AgonistStart: 14-45-9185qiad 1 puff(s) by inhalation every four hours as needed for wheezingAlbuterol Sulfate 90 mcg/actuation HFA aerosol inhaler Active 2 PUFF INHALATION Every 4 hours as needed for shortness of breath or wheezing 8.5 March 16, 2024 8:47amStart: 03-15-2024 End: 00-38-7451momj 2 puff(s) by inhalation every four hours as neededAlbuterol Sulfate 90 mcg/actuation HFA aerosol inhaler Discontinued INHALATION March 15, 2024 12:00am March 16, 2024 8:48am FreeTextSig: IHALE 2 PUFFS EVERY 4 HOURS NEEDED FOR 30 DAYS; Note: Source Status: Taking; Refills: 3; Qty: 18 Each; Provider: Yady Kunz ( )Albuterol Sulfate HFA 108 (90 Base) MCG/ACT IHALE 2 PUFFS EVERY 4 HOURS NEEDED FOR 30 DAYS for 30 ActiveAlbuterol Sulfate HFA 108 (90 Base) MCG/ACT IHALE 2 PUFFS EVERY 4 HOURS NEEDED FOR 30 DAYS for 30 ActiveAlbuterol Sulfate HFA 108 (90 Base) MCG/ACT IHALE 2 PUFFS EVERY 4 HOURS NEEDED FOR 30 DAYS for 30 Activeempagliflozin 10 mg oral tablet (12 sources)Sodium-Glucose Cotransporter 2 InhibitorStart: 05-24-2024 End: 70-58-7952mxfa 1 tablet by mouth once dailyEmpagliflozin (Jardiance) 10 mg tablet Active 0 .ROUTE .COMPLEX March 19, 2025 9:27am TAKE 1 TABLET BY MOUTH EVERY DAYStart: 03-26-2024 End: 62-01-6671srks 1 tablet by mouth once dailyEmpagliflozin 10 mg tablet Discontinued 10 MG PO Daily April 24, 2024 12:42pm May 240:30am 120 actuat fluticasone propionate 0.11 mg/actuat metered dose inhaler (5 sources)Corticosteroidtake 2 puff(s) by inhalation twice dailyFluticasone Propionate HFA 110 MCG/ACT 2 puffs Inhalation Twice a day for 90 days Active Fluticasone Propionate 110 mcg/actuation HFA aerosol inhaler (3 sources)Start: 32-50-8943ejch 1 puff(s) by inhalation twice dailyFluticasone Propionate 110 mcg/actuation HFA aerosol inhaler Active 2 PUFF INHALATION Twice daily March 19, 2025 9:27amStart: 03-15-2024 End: 31-09-6764eugz 2 puff(s) by inhalation twice dailyFluticasone Propionate 110 mcg/actuation HFA aerosol inhaler Discontinued 2 PUFF INHALATION Twice daily March 15, 2024 12:00am March 19, 2025 9:28am FreeTextSi puffs Inhalation Twice a day; Note:Source Status: Start; Refills: 3; Provider: Yady Perrin Start: 18-33-1553kxmm 2 puff(s) by inhalation twice dailyFluticasone Propionate 110 mcg/actuation HFA aerosol inhaler Active 2 PUFF INHALATION Twice daily March 14, 2024 11:00pm FreeTextSi puffs Inhalation Twice a day; Note: Source Status: Start; Refills: 3; Provider: Yady Kunz EglipiZIDE er 10 mg 24 hr extended release oral tablet (7 sources)SulfonylureaStart: 05-15-2024 End: 03-27-8627zidd 1 tablet by mouth once daily at breakfastGlipizide 10 mg tablet extended release 24hr Active 0 .ROUTE .COMPLEX November 06, 2024 5:09pm TAKE 1 TABLET BY MOUTH EVERY DAY WITH BREAKFASTStart: 03-15-2024 End: 87-96-5537vrzh 1 tablet by mouth once daily at breakfastGlipizide 10 mg tablet extended release 24hr Discontinued 1 TAB PO Daily March 15, 2024 12:00am May 15, 2024 9:43am FreeTextSi tablet with breakfast Orally Once a day; Note: Source Status: Refill; Provider: Yady Kunz EStart: 60-90-0969keke 1 tablet by mouth every twenty-four hoursglipiZIDE XL 10 MG 1 tablet with breakfast Orally Once a day for 30 day(s) Sep, ActiveglyBURIDE 5 mg oral tablet (3 sources)Sulfonylureatake 1 tablet by mouth once dailyglyBURIDE 5 MG TAKE 1 TABLET BY MOUTH EVERY DAY for 90 Activelisinopril 20 mg oral tablet (9 sources)Angiotensin Converting Enzyme InhibitorStart: 91-69-6517rxgx 1 tablet by mouth once dailyLisinopril 20 mg tablet Active 0 .ROUTE .COMPLEX May 15, 2024 9:43am TAKE 1 TABLET BY MOUTH EVERY DAYStart: 03-15-2024 End: 11-42-9307qfcx 1 tablet by mouth once dailyLisinopril 20 mg tablet Discontinued 1 TAB PO Daily March 15, 2024 12:00am May 15, 2024 9:43am F reeTextSig: TAKE 1 TABLET BY MOUTH EVERY DAY; Note: Source Status: Taking; Refills: 3; Qty: 90 Tablet; Provider: Yady Kunz ( )take 1 tablet by mouth once dailyLisinopril 20 MG TAKE 1 TABLET BY MOUTH EVERY DAY for 90 ActivemetFORMIN hydrochloride 1000 mg oral tablet (9 sources)BiguanideStart: 03-15-2024 End: 46-66-9307yxec 1 tablet by mouth twice dailyMetformin 1,000 mg tablet Active 1000 MG PO Twice daily 180 January 29, 2025 2:09pm FreeTextSig: TAKE 1 TABLET BY MOUTH TWICE A DAY; Note: Source Status: Taking; Refills: 3; Qty: 180 Tablet; Provider: Yady Kunz ( )take 1 tablet by mouth twice dailymetFORMIN HCl 1000 MG TAKE 1 TABLET BY MOUTH TWICE A DAY for 90 Active OneTouch Ultra - (3 sources)OneTouch Ultra - USE 1 STRIP DAILY TO TEST BLOOD SUGAR for 90 Active simvastatin 40 mg oral tablet (10 sources)HMG-CoA Reductase InhibitorStart: 06-26-2024 End: 03-88-5141jhii 1 tablet by mouth once dailySimvastatin 40 mg tablet Active 0 .ROUTE .COMPLEX February 02, 2025 1:11pm TAKE 1 TABLET BY MOUTHEVERY DAY Start: 03-15-2024 End: 40-78-4253cpnm 1 tablet by mouth once dailySimvastatin 40 mg tablet Discontinued 1 TAB PO Daily March 15, 2024 12:00am June 26, 2024 10:20am FreeTextSig: TAKE 1 TABLET BY MOUTH EVERY DAY; Note: Source Status: Start; Refills: 2; Qty: 90Tablet; Provider: Yady Kunz ( )take 1 tablet by mouth once dailySimvastatin 40 MG TAKE 1 TABLET BY MOUTH EVERY DAY for 90 Active Completed/Discontinued Medications MedicationDrug Class(es)DatesSig (Normalized)Sig (Original)triamcinolone acetonide 40 mg/ml injectable suspension (6 sources)CorticosteroidStart: 99-21-1316Tpnpspm-40 Jul, 40 mgStart: 65-31-6201Xttqrvk-40 Jul, 80 mg Problems Active Problems Problem ClassificationProblemDateDocumented DateEpisodic/ChronicAsthma (11 sources)Asthma; Translations: [Unspecified asthma, uncomplicated]Onset: 28-63-2728SzpfngcBrxmnjscjg and other anemia (2 sources)Anemia; Translations: [Anemia, unspecified]22-31-6487Kujjrutc Deficiency and other anemia (1 source)Anemia, unspecified; Translations: [Anemia, unspecified]09-18-2024 EpisodicDiabetes mellitus with complications (13 sources)Type 2 diabetes mellitus with hyperglycemia; Translations: [Hyperglycemia due to type 2 diabetes mellitus]Onset: 49-75-3840ZbbothlVuqgruxt mellitus without complication (1 source)Type 2 diabetes mellitus without complication; Translations: [Diabetes mellitus without mention of complication, type II or unspecified type, not stated as uncontrolled]Onset: 05-11-0943HpvpnadMydcqicsi of lipid metabolism (11 sources)Hyperlipidemia, unspecified; Translations: [Elevated fasting lipid profile]Onset: 45-30-5112KvmvfhsTjedpctnu hypertension (12 sources)Essential hypertension; Translations: [Essential (primary) hypertension]Onset: 42-59-0651BvgmvorZbkfipcidwgeu and screening for infectious disease (1 source)Vaccination given; Translations: [Encounter for immunization]Episodic Osteoarthritis (9 sources)Primary gonarthrosis, bilateral; Translations: [Bilateral primary osteoarthritis of knee]ChronicOther circulatory disease (1 source)Elevated blood-pressure reading without diagnosis of hypertension; Translations: [Elevated blood-pressure reading, without diagnosis of hypertension]EpisodicOther gastrointestinal disorders (2 sources)Stool DNA-based colorectal cancer screening positive; Translations: [Other fecal abnormalities]21-99-6411SgpfvloxTwbsh injuries and conditions due to external causes (1 source)History of fall; Translations: [History of falling]EpisodicOther non- traumatic joint disorders (1 source)Pain in right kneeEpisodicOther non-traumatic joint disorders (1 source)Pain in left kneeEpisodicOther nutritional; endocrine; and metabolic disorders (2 sources)Body mass index 25-29 - overweight; Translations: [Body mass index (BMI) 27.0-27.9, adult]Onset: 31-28-3432TklszhdtQitce screening for suspected conditions (not mental disorders or infectious disease) (8 sources)Encounter for screening mammogram for malignant neoplasm of breast; Translations: [Patient encounter status]Onset: 73-15-3085Rctlywoy Past or Other Problems Problem ClassificationProblemDateDocumented DateEpisodic/ChronicOther non- traumatic joint disorders (1 source)Arthralgia of the lower leg; Translations: [Pain in joint, lower leg] Onset: 27-85-4414AdliotymWzfqcogm codes; unclassified (1 source)Family history of malignant neoplasm of other organs or systems; Translations: [FAM HX MALIG NEOPLASM OTH ORGN/SYS]Onset: 85-24-2421Mdylmwkk Unclassified (1 source)Vaccine product containing only acellular Bordetella pertussis and Clostridium tetani and Corynebacterium diphtheriae antigens (medicinal product); Translations: [Faxgctrkbk-tgcrrud-akzrhlybb, combined [DTP] [DtaP]]Onset: 06-07-2017 Results Test NameValueInterpretationReference RangeFacilityCholesterol in LDL Calc [Mass/Vol]on 04-31-6017Vuerxgrgkqj in LDL [Mass/Vol]Cholesterol in LDL [Mass/volume] in Serum or Plasma by calculationFayette County Memorial Hospital Comment on above:<100 mg/dl RECASUH837-486 mg/dl NEAR OR ABOVE QXEONDQ686-247 mg/dl BORDERLINE BPYK133-129 mg/dl HIGH>190 mg/dl VERY HIGHCholesterol in VLDL Calc [Mass/Vol]on 63-48-6607Xbbjizdlffw in VLDL [Mass/Vol]Cholesterol in VLDL [Mass/volume] in Serum or Plasma by calculationFayette County Memorial Hospital Estimated glomerular filtration rate (GFR) non- Americanon 03-19-2025 GFR/1.73 sq M.predicted among non-blacks MDRD (S/P/Bld) [Vol rate/Area]Estimated glomerular filtration rate (GFR) non->=60 mL/min/1.73m 2 [facility] HospitalLaboratory - Chemistry and Chemistry - challengeon 81-75-0601Itsxlsl [Mass/Vol]9.2 mg/dL8.5-10.1FMagruder Memorial HospitalChloride [Moles/Vol]105 mmol/D84-971XdbkwhiueFayette County Memorial HospitalCholesterol [Mass/Vol]164 mg/dL<=200[facility] Cholesterol in HDL [Mass/Vol]48 mg/xQ32-04NednoqlevFayette County Memorial Hospital Comment on above:> or =60 mg/dl - LOW CARDIOVASCULAR RISK<40 mg/dl - HIGH CARDIOVASCULAR RISKCO2 [Moles/Vol]28.1 mmol/L21.0-32.0[facility] HospitalCreatinine [Mass/Vol]0.69 mg/dL0.55-1.02[facility] GFR/1.73 sq M.predicted MDRD (S/P/Bld) [Vol rate/Area]mL/min/{1.73_m2}>=60 mL/min/1.73m 2FMagruder Memorial HospitalGlucose [Mass/Vol]126 mg/dLHigh 74-106F[facility] HospitalPotassium [Moles/Vol]3.9 mmol/L3.5-5.1 [facility] Hospitalodium [Moles/Vol]144 mmol/F195-696WrjaqklezFayette County Memorial HospitalTriglyceride [Mass/Vol]199 mg/dLHigh<=150[facility] HospitalUrea nitrogen [Mass/Vol]18.0 mg/dL7.0-18.0[facility] HospitalUrea nitrogen/Creatinine [Mass ratio]26.1 mg/mgFayette County Memorial HospitalMicroalbumin [Mass/volume] in Urineon 66-85-7681Ptyldxd DL <= 20 mg/L (U) [Mass/Vol]Microalbumin [Mass/volume] in Urine<=30.0[facility] HospitalNo Panel Informationon 29-88-0307Ongut Random Creatinine 110.06 mg/dL20.00-300.00T[facility]edo Hospitalerum or plasma anion gap determinationon 15-93-3954Lgpcz gap [Moles/Vol]Serum or plasma anion gap determinationToledo Hospitalerum or plasma total cholesterol/high density lipoprotein (HDL) cholesterol mass daniel 03-19-2025 Cholesterol.total/Cholesterol in HDL [Mass ratio]Serum or plasma total cholesterol/high density lipoprotein (HDL) cholesterol mass [facility] CenterComment on above:3.3 - 4.4 LOW RISK4.4 - 7.1 AVERAGE RISK7.1 - 11.0 MODERATE RISK>11.0 HIGH RISKUrine microalbumin/creatinine mass ratioon 82-54-5690Doxknub/Creatinine DL <= 20 mg/L (U) [Mass ratio]Urine microalbumin/creatinine mass ratioHigh0.0-29.9[facility] Comment on above:NO MICROALBUMINURIA 0-29 MG/GCLINICAL MICROALBUMINURIA 30-300 MG/GMACROALBUMINURIA >300 MG/GGlucose Glucometer (BldC) [Mass/Vol]Ordered By: Simone Calero on 32-31-7076Llrgsxr [Mass/Vol]Capillary blood glucose measurement by glucometer (mass/volume)[facility] HospitalComment on above: Random Glucose Reference Range is dependent on time and content of last meal. Glucose of more than 200 mg/dL in a nonstressed, ambulatory subject supports the diagnosis of Diabetes Mellitus.Glucose Poct Glucometerson 87-61-8069Vvnoayy [Mass/Vol]159 mg/dLBaptist Medical Center Nassau Physician GroupComment on above:Result Comment: Random Glucose Reference Range is dependent on time and content of last meal. Glucose of more than 200 mg/dL in a nonstressed, ambulatory subject supports the diagnosis of Diabetes Mellitus. PERFORMED BY: [address] [place] [place] [address] PATHOLOGIST SOFT WORK WRAPPER EXAMINER BETTYE CASTLE M.D.Performed By: #### GLULS #### Point of Care testing ,Paul 10-30-2024L Specimen: [id number] Received: 10/30/24 Status: ZEE Valdez Num: [id number] Spec Type: Surgical Subm Dr: Simone Calero MD Tissues: A Colon Biopsy (SIGMOID POLYP) Procedures: HE/2, Gross/Micro L4 Age/ Patient Sex Location Account Attending Physician Jyothi Keen 69/F [id number] Simone Calero MD SPEC NUM: [id number] RECD: 10/30/24 STATUS: ZEE VALDEZ NUM: [id number] ZOILA: 10/30/[address] [facility] [address]: Simone Calero MD ENTERED: 10/30/24 RENETTA COLLIER: SPEC TYPE: Surgical DEPT: S ENTERED BY: [id number] RECV BY: [id number] ORDERED: SACHI/Yousif, Gross/Micro L4 ORDERED: HE/Yousif, Gross/Micro L4 Pathological Diagnosis Sigmoid polyp: Hyperplastic polyp. Clinical Information Positive Cologuard Gross Description Part A is received in formalin labeled with the patients name, date of , and sigmoid polyp is a carrillo-guido, focally erythematous, friable, 0.5 cm in greatest dimension polypoid fragment. The specimen is entirely submitted in a single cassette. (1, ns, [id number] A) CPT Codes 95775 Specimen: [id number] Received: 10/30/24 Status: ZEE José Miguel Num: [id number] Spec Type: Surgical Subm Dr: Simone Calero MD Tissues: A Colon Biopsy (SIGMOID POLYP) Procedures: SACHI/Yousif, Gross/Micro L4 Patient: Jyothi Keen Blanca [id number] (Continued) Signed (signature on file) Mechelle Henderson MD 10/31/24 1300 [facility] Physician GroupBasophils Auto (Bld) [#/Vol]on 09-18-2024 Basophils (Bld) [#/Vol]Automated basophil count0.0-0.1FMagruder Memorial HospitalBasophils/100 WBC Auto (Bld)on 06-15-4188Golhoatta/100 WBC (Bld)Automated basophil %0.2-2.0[facility] HospitalEosinophils/100 WBC Auto (Bld)on 87-26-5801Jlznujuanpm/100 WBC (Bld)Automated eosinophil %0.9-7.0 [facility] HospitalErythrocyte distribution width Auto (RBC) [Ratio]on 56-14-0375Pkvnotwmvew distribution width (RBC) [Ratio]Erythrocyte distribution width [Ratio] by Automated count11.0-15.0[facility] HospitalEstimated glomerular filtration rate (GFR) non- Americanon 03-77-7797UNU/1.73 sq M.predicted among non-blacks MDRD (S/P/Bld) [Vol rate/Area]Estimated glomerular filtration rate (GFR) non->=60 mL/min/1.73m 2FMagruder Memorial HospitalGlucose mean value [Mass/volume] in Blood Estimated from glycated hemoglobinon 08-53-8896Cvgmxlg glucose Estimated from glycated hemoglobin (Bld) [Mass/Vol]Glucose mean value [Mass/volume] in Blood Estimated from glycated hemoglobinFayette County Memorial HospitalHematocrit Auto (Bld) [Volume fraction]on 84-92-8607Xjllfricxg (Bld) [Volume fraction]Hematocrit [Volume Fraction] of Blood by Automated count 36.0-48.0[facility] HospitalHemoglobin [Mass/volume] in Bloodon 32-19-2759Vucmkhxfyn (Bld) [Mass/Vol]Hemoglobin [Mass/volume] in Blood12.0-16.0 [facility] HospitalLaboratory - Chemistry and Chemistry - challengeon 17-00-0463Wjybzrx [Mass/Vol]9.4 mg/dL8.5-10.1FMagruder Memorial HospitalChloride [Moles/Vol]108 mmol/ZSsxo29-426MsvidbmbcFayette County Memorial HospitalCO2 [Moles/Vol]28.4 mmol/L21.0-32.0[facility] Creatinine [Mass/Vol]0.74 mg/dL0.55-1.02[facility] GFR/1.73 sq M.predicted MDRD (S/P/Bld) [Vol rate/Area]mL/min/{1.73_m2}>=60 mL/min/1.73m 2FMagruder Memorial HospitalGlucose [Mass/Vol]114 mg/dLHigh 74-106[facility] HospitalPotassium [Moles/Vol]5.0 mmol/L3.5-5.1 [facility] Hospitalodium [Moles/Vol]145 mmol/I024-855JhzzhigomFayette County Memorial HospitalUrea nitrogen [Mass/Vol]19.0 mg/dLHigh7.0-18.0[facility] HospitalUrea nitrogen/Creatinine [Mass ratio]25.7 mg/mgFayette County Memorial HospitalLaboratory - Hematology and Cell countson 60-88-9060HyN1c (Bld) [Mass fraction]7.1 %High4.5-6.2FMagruder Memorial HospitalComment on above:ADA RECOMMENDED LIMIT 4.0 - 6.0ADA THERAPEUTIC TARGET < 7.0ACTION SUGGESTED> 7.0Immature granulocytes/100 WBC (Bld)0.1 %0.0-0.5FMagruder Memorial HospitalLeukocytes [#/volume] corrected for nucleated erythrocytes in Blood by Automated counon 06-40-1411SUD corrected for nucl RBC Auto (Bld) [#/Vol]Leukocytes [#/volume] corrected for nucleated erythrocytes in Blood by Automated coun4.0-11.0[facility] HospitalLymphocytes Auto (Bld) [#/Vol]on 29-57-7861Nuwxqzvtafs (Bld) [#/Vol]Lymphocytes [#/volume] in Blood by Automated count1.2-3.8[facility] HospitalLymphocytes/100 WBC Auto (Bld)on 77-81-6594Xkjtgtlgnvk/100 WBC (Bld)Lymphocytes/100 leukocytes in Blood by Automated count20.5-60.0[facility] HospitalH Auto (RBC) [Entitic mass]on 93-47-6057IAE (RBC) [Entitic mass]MCH [Entitic mass] by Automated count26.7-34.0[facility] HospitalMCHC Auto (RBC) [Mass/Vol]on 43-90-4023IXOI (RBC) [Mass/Vol]MCHC [Mass/volume] by Automated count29.9-35.2FMagruder Memorial HospitalMCV Auto (RBC) [Entitic vol]on 11-17-6136ZMG (RBC) [Entitic vol]MCV [Entitic volume] by Automated count 81.0-99.0[facility] HospitalMonocytes Auto (Bld) [#/Vol]on 97-90-1631Pcyoidwyi (Bld) [#/Vol]Automated blood monocyte count0.3-0.8[facility] HospitalMonocytes/100 WBC Auto (Bld)on 02-42-4128Czjsqyocl/100 WBC (Bld)Automated monocyte %1.7-12.0[facility] Neutrophils Auto (Bld) [#/Vol]on 45-02-4718Kldcxyalcto (Bld) [#/Vol]Neutrophils [#/volume] in Blood by Automated count1.4-6.5FMagruder Memorial Hospital Neutrophils/100 WBC Auto (Bld)on 66-68-2421Shmooybcfsm/100 WBC (Bld)Automated neutrophil %43.0-75.0[facility] HospitalNo Panel Informationon 02-35-9559Oaobslbuzty # (Auto)0.1 10 3/uL0.0-0.7FMagruder Memorial HospitalImmature Granulocyte # (Auto)0.01 10 3/uL0.00-0.03[facility] HospitalPlatelet mean volume Auto (Bld) [Entitic vol]on 47-56-8009Olhemeld mean volume (Bld) [Entitic vol]Platelet mean volume [Entitic volume] in Blood by Automated count9.5-13.5FMagruder Memorial HospitalPlatelets Auto (Bld) [#/Vol]on 98-64-2681Lnhacesxt (Bld) [#/Vol]Platelets [#/volume] in Blood by Automated ftqyx533-397CypzvlikrFayette County Memorial HospitalRBC Auto (Bld) [#/Vol]on 40-03-0452MPA (Bld) [#/Vol]Erythrocytes [#/volume] in Blood by Automated count 4.20-5.40[facility] Hospitalerum or plasma anion gap determinationon 11-79-8089Kiedv gap [Moles/Vol]Serum or plasma anion gap determinationFayette County Memorial HospitalGLYCOHEMOGLOBIN A1Con 01-13-2023 ADA RECOMMENDATIONSEE [facility] City HospitalComment on above:Result Comment: ADA RECOMMENDED LIMIT 4.0 - 6.0 ADA THERAPEUTIC TARGET < 7.0 ACTION SUGGESTED > 7.0Performed By: #### DATA1C #### [facility] [address] [address] [address] Sumeet GuerraGlucose [Mass/Vol]154 mg/dLNoDayton VA Medical CenterComment on above:Performed By: #### DATA1C #### [facility] [address] [address] [address] Sumeet GuerraHbA1c (Bld) [Mass fraction]7.0 %Critically high4.5-6.2The [facility] HospitalComment on above:Performed By: #### DATA1C #### [facility] [address] [address] [address] Sumeet Rocha AUTO DIFFon 98-43-9165JETZ #0.0 103/ulNormal0.0-0.1The [facility] HospitalComment on above:Performed By: #### CBC #### [facility] [address] [place] [address] Dr. Sumeet GuerraBasophils/100 WBC (Bld)0.4 %Normal0.2-2.0The [facility] Comment on above:Performed By: #### CBC #### [facility] [address] [place] [address] Dr. Sumeet Pereira #0.1 103/ulNormal0.0-0.7The [facility] HospitalComment on above: Performed By: #### CBC #### [facility] [address] [place] [address] Dr. Sumeet Kimosinophils/100 WBC (Bld)1.7 %Normal0.9-7.0The [facility] Comment on above:Performed By: #### CBC #### [facility] [address] [place] [address] Dr. Sumeet Kimrythrocyte distribution width (RBC) [Ratio]12.9 %Gbfknp37.0-15.0 The [facility] HospitalComment on above:Performed By: #### CBC #### [facility] [address] [place] [address] Dr. Sumeet GuerraHematocrit (Bld) [Volume fraction]39.8 %Jjjzpx31.0-48.0The [facility] HospitalComment on above:Performed By: #### CBC #### [facility] [address] [place] [address] Dr. Sumeet GuerraHemoglobin (Bld) [Mass/Vol]12.9 g/qSTaomlk66.0-16.0The [facility] HospitalComment on above:Performed By: #### CBC #### [facility] [address] [place] [address] Dr. Sumeet Espinoza #0.02 10e3/ulNormal0.00-0.03The [facility] HospitalComment on above:Performed By: #### CBC #### [facility] [address] [place] [address] Dr. Sumeet Espinoza %0.3 %Normal0.0-0.5The [facility] HospitalComment on above: Performed By: #### CBC #### [facility] [address] [place] [address] Dr. Sumeet Bazan #2.1 103/ulNormal1.2-3.8The [facility] HospitalComment on above:Performed By: #### CBC #### [facility] [address] [place] [address] Dr. Sumeet Tanhocytes/100 WBC (Bld)26.8 %Pibkmt62.5-60.0The [facility] HospitalComment on above:Performed By: #### CBC #### [facility] [address] [place] [address] Dr. Sumeet Diaz DIFF REQNONormalThe [facility] HospitalComment on above: Performed By: #### CBC #### [facility] [address] [place] [address] Dr. Sumeet Nunez (RBC) [Entitic mass]27.7 zgKjonic89.7-34.0The [facility] HospitalComment on above:Performed By: #### CBC #### [facility] [address] [place] [address] Dr. Sumeet Nunez (RBC) [Mass/Vol]32.4 g/sWPtyucw01.9-35.2The [facility] HospitalComment on above:Performed By: #### CBC #### [facility] [address] [place] [address] Dr. Sumeet Ramirez (RBC) [Entitic vol]85.6 qBKivcrk63.0-99.0The [facility] HospitalComment on above:Performed By: #### CBC #### [facility] [address] [place] [address] Dr. Sumeet Tse #0.6 103/ulNormal0.3-0.8The [facility] HospitalComment on above:Performed By: #### CBC #### [facility] [address] [place] [address] Dr. Sumeet Kellyocytes/100 WBC (Bld)7.8 %Normal1.7-12.0The [facility] Comment on above:Performed By: #### CBC #### [facility] [address] [place] [address] Dr. Sumeet MccainUT #4.9 103/ulNormal1.4-6.5The [facility] HospitalComment on above:Performed By: #### CBC #### [facility] [address] [place] [address] Dr. Sumeet Mccainutrophils/100 WBC (Bld)63.0 %Hiedhc13.0-75.0The [facility] HospitalComment on above:Performed By: #### CBC #### [facility] [address] [place] [address] Dr. Sumeet GuerraPlatelet mean volume (Bld) [Entitic vol]11.5 fLNormal9.5-13.5The [facility] HospitalComment on above:Performed By: #### CBC #### [facility] [address] [place] [address] Dr. Sumeet GuerraPLT285 103/niJlafvd275-410Gfv [facility] HospitalComment on above: Performed By: #### CBC #### [facility] [address] [place] [address] Dr. Sumeet GuerraRBC4.65 106/ulNormal4.20-5.40The [facility] HospitalCome[facility] on above:Performed By: #### CBC #### [facility] [address] [place] [address] Dr. Sumeet GuerraWBC7.7 103/ulNormal4.0-11.0[facility] on above: Performed By: #### CBC #### [facility] [address] [place] [address] Dr. Sumeet GuerraGLYCOHEMOGLOBIN A1Con 97-19-2763ZCI RECOMMENDATIONSEE BELOWNormal [facility]Come[facility] on above:Result Comment: ADA RECOMMENDED LIMIT 4.0 - 6.0 ADA THERAPEUTIC TARGET < 7.0 ACTION SUGGESTED > 7.0Performed By: #### A1C #### [facility] [address] [place] [address] Dr. Sumeet GuerraGlucose [Mass/Vol]200 mg/dLNormalThRegional Medical CenterComment on above:Performed By: #### A1C #### [facility] [address] [address] [address] Sumeet GuerraHbA1c (Bld) [Mass fraction]8.6 %Critically high4.5-6.2The [facility] Centerment on above:Performed By: #### A1C #### [facility] [address] [address] [address] Sumeet RiveraID PROFILEon 19-87-9201BWQI-HDL RATIO NORMSEE BELOWMemorial HospitalComment on above:Result Comment: 3.3 - 4.4 LOW RISK 4.4 - 7.1 AVERAGE RISK 7.1 - 11.0 MODERATE RISK >11.0 HIGH RISKPerformed By: #### LIPID, CMP #### [facility] [address] [address] [address] Sumeet Adamesesterol [Mass/Vol]138 mg/dLNormal<=200The [facility] Comment on above:Performed By: #### LIPID, CMP #### [facility] [address] [address] [address] Sumeet Adamesesterol in HDL [Mass/Vol]48 mg/mYZhpuwq07-99Lop [facility] HospitalCome[facility] on above:Performed By: #### LIPID, CMP #### [facility] [address] [address] [address] Sumeet GuerraCholesterol in LDL [Mass/Vol]71.6 mg/dLMemorial HospitalComment on above:Performed By: #### LIPID, CMP #### [facility] [address] [address] [address] Sumeet Adamesesterjuan jose.total/Cholesterol in HDL [Mass ratio]2.9 {ratio} NormalThe [facility] HospitalComment on above:Performed By: #### LIPID, CMP #### [facility] [address] [address] [address] Sumeet PérezL NORMAL> or = 60 mg/dl - LOW CARDIOVASCULAR RISK <40 mg/dl - HIGH CARDIOVASCULAR RISKMemorial HospitalComment on above:Performed By: #### LIPID, CMP #### [facility] [address] [place] [address] Dr. Sumeet GuerraLDL CALC NORMALSEE BELOWMemorial HospitalComment on above:Result Comment: <100 mg/dl OPTIMAL 100 - 129 mg/dl NEAR OR ABOVE OPTIMAL 130 - 159 mg/dl BORDERLINE HIGH 160 - 189 mg/dl HIGH >190 mg/dl VERY HIGH Performed By: #### LIPID, CMP #### [facility] [address] [place] [address] Dr. Sumeet GuerraTriglyceride [Mass/Vol]92 mg/dLNormal<=150The [facility] Comment on above:Performed By: #### LIPID, CMP #### [facility] [address] [place] [address] Dr. Sumeet GuerraVLDL CALC18.4 mg/dLNoDayton VA Medical CenterComment on above: Performed By: #### LIPID, CMP #### [facility] [address] [place] [address] Dr. Sumeet BrunoALBUMIN, RAND URon 53-04-5418yDUH80.7 mg/LNormal<=30.0The [facility] HospitalComment on above:Performed By: #### MALBR #### [facility] [address] [place] [address] Dr. Sumeet GuerraPROF 14(COMP METB)on 23-19-0124Mcccwuv [Mass/Vol]3.9 g/dLNormal 3.4-5.0The [facility] HospitalComment on above:Performed By: #### LIPID, CMP #### [facility] [address] [place] [address] Dr. Sumeet GuerraAlbumin/Globulin [Mass ratio]1.1 {ratio}NormalThe [facility] HospitalComment on above:Performed By: #### LIPID, CMP #### [facility] [address] [place] [address] Dr. Sumeet Cevrantes [Catalytic activity/Vol]103 U/WTemjok47-984Ksc [facility] HospitalComment on above:Performed By: #### LIPID, CMP #### [facility] [address] [place] [address] Dr. Sumeet Garcia [Catalytic activity/Vol]45 U/ZWtcohj57-27Lmc [facility] HospitalComment on above:Performed By: #### LIPID, CMP #### [facility] [address] [address] [address] Sumeet GuerraAnion gap [Moles/Vol]12.7 mmol/LNormalNorwalk Memorial Hospital Comment on above:Performed By: #### LIPID, CMP #### [facility] [address] [address] [address] Sumeet GuerraAST [Catalytic activity/Vol]31 U/GSvktmw35-77Hfk [facility] HospitalComment on above:Performed By: #### LIPID, CMP #### [facility] [address] [place] [address] Dr. Sumeet GuerraBilirubin [Mass/Vol]0.8 mg/dLNormal0.2-1.0[facility] Comment on above:Performed By: #### LIPID, CMP #### [facility] [address] [place] [address] Dr. Sumeet GuerraCalcium [Mass/Vol]9.3 mg/dLNormal8.5-10.1[facility] Comment on above:Performed By: #### LIPID, CMP #### [facility] [address] [place] [address] Dr. Sumeet GuerraChloride [Moles/Vol]103 mmol/NKomzgw07-567PmzNorwalk Memorial Hospital Comment on above:Performed By: #### LIPID, CMP #### [facility] [address] [place] [address] Dr. Sumeet GuerraCO2 [Moles/Vol]30.3 mmol/FUtqgvz17.0-32.0The [facility] Comment on above:Performed By: #### LIPID, CMP #### [facility] [address] [place] [address] Dr. Sumeet GuerraCreatinine [Mass/Vol]0.64 mg/dLNormal0.55-1.02The [facility] HospitalComment on above:Performed By: #### LIPID, CMP #### [facility] [address] [address] [address] Sumeet KimGFR-AF MONTSERRATIAN>60Normal>=60The [facility] HospitalComment on above:Performed By: #### LIPID, CMP #### [facility] [address] [address] [address] Sumeet KimGFR-NON AF MONTSERRATIAN>60Normal>=60The [facility] HospitalComment on above:Performed By: #### LIPID, CMP #### [facility] [address] [address] [address] Sumeet GuerraGlobulin (S) [Mass/Vol]3.7 g/dLNormalThe [facility] HospitalComment on above:Performed By: #### LIPID, CMP #### [facility] [address] [address] [address] Sumeet GuerraGlucose [Mass/Vol]151 mg/dLCritically wjsw19-255Qnr [facility] HospitalComment on above:Performed By: #### LIPID, CMP #### [facility] [address] [place] [address] Dr. Sumeet GuerraPotassium [Moles/Vol]4.0 mmol/LNormal3.5-5.1The [facility] Comment on above:Performed By: #### LIPID, CMP #### [facility] [address] [place] [address] Dr. Sumeet GuerraProtein [Mass/Vol]7.6 g/dLNormal6.4-8.2The [facility] Comment on above:Performed By: #### LIPID, CMP #### [facility] [address] [place] [address] Dr. Sumeet GuerraSodium [Moles/Vol]142 mmol/JIdaqsa129-466Ltf [facility] Comment on above:Performed By: #### LIPID, CMP #### [facility] [address] [address] [address] Sumeet GuerraUrea nitrogen [Mass/Vol]17.0 mg/dLNormal7.0-18.0The [facility] HospitalComment on above:Performed By: #### LIPID, CMP #### [facility] [address] [address] [address] Sumeet GuerraUrea nitrogen/Creatinine [Mass ratio]26.6 mg/mgMemorial HospitalComment on above:Performed By: #### LIPID, CMP #### [facility] [address] [address] [address] Sumeet GuerraMG MAMM SCREEN 3D MARYCRUZ CADon 51-37-4092KL MAMM SCREEN 3D MARYCRUZ CAD Patient: JYOTHI KEEN Exam Date: 08/17/2022 : 1955 Gender:F Ordering : DR JOAQUINA HARRELL M.D. Admission #: [id number] Family : Order #: [id number] CLICK HERE TO VIEW EXAM RADIOLOGY REPORT [...] prostate cancer at age 68. LOCATION: [facility] BREAST COMPOSITION: Heterogeneously dense,which may obscure [...] by: Susan Ardon MD on 08/17/2022 at 12:06[facility] GLYCOHEMOGLOBIN A1Con 62-07-2308TVY RECOMMENDATIONSEE BELOWMemorial HospitalComeaton rapids medical center on above:Result Comment: ADA RECOMMENDED LIMIT 4.0 - 6.0 ADA THERAPEUTIC TARGET < 7.0 ACTION SUGGESTED > 7.0Performed By: #### DATA1C #### [facility] [address] [address] [address] Sumeet GuerraGlucose [Mass/Vol]192 mg/dLNoDayton VA Medical CenterComment on above:Performed By: #### DATA1C #### [facility] [address] [address] [address] Sumeet GuerraHbA1c (Bld) [Mass fraction]8.3 %Critically high4.5-6.2The [facility] HospitalComment on above:Performed By: #### DATA1C #### [facility] [address] [address] [address] Sumeet Guerra Vital Signs Date TimeVital SignValuePerforming PpxarntgdPbhcabrg03-95-6241 08:57-0400Body azhabl487.21 cmFayette [facility] Hospital06-09-2025 08:57-0400Body mass index (BMI) [Ratio]25.9 kg/c0BqrjlrbclFayette County Memorial Hospital06-09-2025 08:57-0400Body cimujn53.21 kgFayette County Memorial Hospital06-09-2025 08:57-0400Diastolic blood lxqysezh41 mm[Hg][facility] 03-19-2025 08:57-0400Heart rate88 /[facility] 03-19-2025 08:57-0400Respiratory rate12 /[facility] 03-19-2025 08:57-8584JbS9% (BldA) [Mass fraction]99 %[facility]06-09-2025 08:57-0400Systolic blood hegbdqsv357 mm[Hg][facility]01-20-2025 10:43-0500Diastolic blood ychdjxwj68 mm[Hg]Joaquina Harrell MD Work Phone: [facility]01-20-2025 10:43-0500 Heart rate80 /Shayan Harrell MD Work Phone: [facility]01-20-2025 10:43-0500 Respiratory rate16 /Shayan Harrell MD Work Phone: [facility]01-20-2025 10:43-0500 SaO2% (BldA) [Mass fraction]98 %Joaquina Harrell MD Work Phone: [phone]35[facility]01-20-2025 10:43-0500 Systolic blood mm[Hg]Joaquina Harrell MD Work Phone: 1(395)[address]01-20-2025 09:21-0500 Body ochgct663.21 cmJoaquina Harrell MD Work Phone: 1(636)[address]01-20-2025 09:21-0500 Body .5 kgJoaquina Harrell MD Work Phone: [phone])[address]12-09-2024 09:01-0500 Body .94 cmJoaquina Harrell MD Work Phone: 1(292)[address]12-09-2024 09:01-0500 Body mass index (BMI) [Ratio]26.4 kg/f9HyfcewJoaquina Harrell MD Work Phone: [phone])[address]12-09-2024 09:01-0500 Body .5 kgJoaquina Harrell MD Work Phone: [phone])[address] [place], [place] [address]2-09-2024 09:01-0500 Diastolic blood zqwivscx26 mm[Hg]Joaquina Harrell MD Work Phone: 1(331)[address]12-09-2024 09:01-0500 Heart rate80 /minJoaquina Harrell MD Work Phone: 1([phone] [place], [place] [address]12-09-2024 09:01-0500 Systolic blood fidhughs782 mm[Hg]Joaquina Harrell MD Work Phone: [phone])[address]12-06-2023 08:30-0500 Body xtazey443.94 cmJoaquina Harrell Other [employer] Other 337517-59-0897 08:30-0500Body mass index (BMI) [Ratio] 27.58 kg/b3PnzfjuJoaquina Harrell Other [employer] Other 12-06-2023 08:30-0500Body uqahju89.23 kgJoaquina Harrell Other [employer] Other 12-06-2023 08:30-0500Diastolic blood ledonrgt83 mm[Hg] Joaquina Harrell Other [employer] Other 12-06-2023 08:30-0500Systolic blood efqveyhu097 mm[Hg] Joaquina Harrell Other [employer] Other 10-12-2023 10:30-0400Body muynkn355.94 cmRobert [place] [address] Other [employer] Other 10-12-2023 10:30-0400Body mass index (BMI) [Ratio] 28.15 kg/v3Zbujjy [place] [address] Other [employer] Other 10-12-2023 10:30-0400Body rqukwe58.59 kgRobert [place] [facility] Other [employer] Other 06-07-2023 08:30-0400Body onhrjs758.94 cmJoaquina Harrell Other [employer] Other 06-07-2023 08:30-0400Body mass index (BMI) [Ratio] 28.15 kg/z7ZksvnbJoaquina Harrell Other [employer] Other 06-07-2023 08:30-0400Body pdkevp14.59 kgJoaquina Harrell Other [employer] Other 06-07-2023 08:30-0400Diastolic blood elaswzpc39 mm[Hg] Joaquina Harrell Other 432.811.7803[employer] Other 06-07-2023 08:30-0400Systolic blood qsaqgnms853 mm[Hg] Joaquina Harrell Other [employer] Other Encounters Encounter DateEncounter TypeCare ProviderFacilityStart: 03-19-2025 End: 43-01-7657ecsnrjzdxeXkeqggrwlThe [facility] Work Phone: Start: 03-19-2025 End: 62-99-7115Maibgcc encounter procedureFormerly [facility] Physician [facility] Work Phone: Start: 64-74-6117Uso-patient / Non-visitJoaquina Harrell MD Work Phone: [facility] Work Phone: Start: 10-30-2024 End: 99-21-7758Bvzgcgapw to same day surgery centerJoaquina Harrell MD Work Phone: [facility]-Dig[facility] Work Phone: Start: 10-30-2024 End: 96-92-4398ewtqxulbdbZqznhc E Braun MD Work Phone: [facility] Work Phone: Start: 09-21-2024 End: 53-43-5078Zqupmet encounter procedureJoaquina Harrell MD Work Phone: [facility] Physician [facility] Work Phone: Start: 09-18-2024 End: 16-95-1744Yhzgjjq encounter procedureJoaquina Harrell MD Work Phone: [facility] Physician [facility] Work Phone: Start: 11-04-2023 End: 85-14-9685iphicivrtxKhloap [place] [facility] Other [employer] Other Start: 06-80-7809Qgexne outpatient visit 15 minutes Benigno Mccollumle IIFPG [facility] OrthopedicsStart: 09-15-2023 End: 57-46-3804rvknxtxihgLuvblh Braun Other [facility] [employer] Other Start: 82-49-7064Oqneren encounter procedureMarcia BraunSumma Health [facility] ClinicStart: 08-27-2023 End: 00-45-5322ijykciktdtCQ Joaquina Perrin Yady Work Phone: [facility] Work Phone: Start: 08-27-2023 End: 15-11-5087Ezfzjhdduu RecurringMD Kunz Harrell Work Phone: [facility]-Physical Therapy [place] CreekStart: 17-07-2150Qqztsf outpatient new 45 minutesRobert [place] REYNAFPG [facility] OrthopedicsStart: 07-22-2023 End: 23-42-4296qpcsscwskbAD Benigno Ramirezisle II Work Phone: [facility] Work Phone: Start: 07-22-2023 End: 70-09-3284Dhfxfjb encounter procedureMD Benigno Ramirezisle II Work Phone: [facility] Start: 03-23-2023 End: 53-84-3480uwqhabtjlzJhbgtj Braun Other [facility] [employer] Other Start: 16-03-1137Ssesjvleu encounterMarjuan carlosa YadySumma Health [facility] ClinicStart: 03-17-2023 End: 12-03-5904pdyvbbdnjxGpsqmi Braun Other [facility] [employer] Other Start: 74-76-5946Mlngwq outpatient visit 15 minutes Joaquina [facility] ClinicStart: 01-13-2023 End: 25-58-4066komubvakhgNQ NONE LISTED REQUESTFacility:E5Eyscr: 63-43-6965Jrxfw health examinationRobert [place] [facility] Other [employer] Other Start: 50-07-7869Czennap, abnormal examinationRobert [place] [facility] Other [employer] Other Start: 09-16-2022 End: 41-01-5015tljsudkeuaDM MARCIA E BRAUNFacility:W5Ysjza: 08-17-2022 End: 15-20-0143jghfbjqmxeTW MARCIA E BRAUNFacility:I2Ohhce: 04-23-2022 End: 95-15-4899bnxgwbfrseLU NONE LISTED REQUESTFacility:H1 Procedures DateProcedureProcedure DetailPerforming ClinicianStart: 87-92-6007Zimpxypsghb Joaquina Harrell MD Work Phone: Start: 08-10-3030Etpjwn X-rayMD Benigno [place] [facility] Work Phone: Start: 18-21-6703K-ray of both kneesMD Benigno [place] [facility] Work Phone: Start: 08-15-7778Tqytafrzi for malignant neoplasm of colonRobert [place] [facility] Other Start: 49-73-5603Ruutpgjja mammographyRobert Andreas II Other Screening for malignant neoplasm of breastRobert [place] [facility] Other Plan of Treatment DateCare ActivityDetailAuthorStart: 05-35-7815GxlhqhrmyFayette County [facility] Hospital Patient EducationHemorrhoids Colon polyps Diverticulosis Know your [facility] Work Phone: [facility] Immunizations Immunization DateImmunizationNotesCare BlofshyfBabsxyfp68-43-6784qedgftgug virus vaccine, split virus (incl. purified surface antigen)Benigno [place] [facility] Other [employer] Other [id number] virus vaccine, unspecified formulationJoaquina Harrell MD Work Phone: [facility]10-18-2022COVID-19 Pfizer (Pediatric)Benigno Johns II Other [facility]09-28-2021influenza virus vaccine, split virus (incl. purified surface antigen)Benigno Johns II Other [employer] Other [id number] virus vaccine, unspecified formulationJoaquina Harrell MD Work Phone: [facility]04-03-2021COVID-19 Vaccine Pfizer - Documentation Purposes OnlyRobert [place] II Other [facility]11-24-2020COVID-19 Vaccine Pfizer - Documentation Purposes OnlyRobert Andreas II Other [facility]11-02-2020 pneumococcal conjugate vaccine, 13 valentRobert [place] II Other [facility]10-16-2020influenza virus vaccine, split virus (incl. purified surface antigen)Bneigno Johns II Other [employer] Other [id number] virus vaccine, unspecified formulationJoaquina Harrell MD Work Phone: [facility]09-27-2018influenza virus vaccine, split virus (incl. purified surface antigen)Benigno oJhns II Other [employer] Other [id number] virus vaccine, unspecified formulationJoaquina Harrell MD Work Phone: [facility]08-28-2017diphtheria, tetanus toxoids and acellular pertussis vaccine, unspecified formulationRobert [place] II Other [facility] Payers DatePayer CategoryPayerPolicy [id number] 1960Self-pay [id number] [id number] Social History DateTypeDetailFacilityUnknown if ever smokedBoca [employer] Other Sex Assigned At BirthSex Assigned At BirthNo[employer] Other Start: 24-97-6015Snj Assigned At BirthFeCleveland Clinictart: 10-30-2024 End: 23-02-8332Kbhzkjq smoking status NHISNever smoked tobacco (finding) [facility]: 07-05-7280VwfZkrophj sex unknown (finding)[facility]: 20-87-4032MwbBqxjsb (finding) [facility] Medical Equipment Procedure CodeEquipment CodeEquipment Original TextEquipment IdentifierDates OneTouch Delica Plus Ulwnyl31I -Lancets (Onetouch Delica Plus Lancet) 33 gauge miscStart: 69-06-7845Eseiy Sugar Diagnostic (Blood Glucose Test) stripStart: 03-31-2024 End: 98-42-8685Lttka Sugar Diagnostic (Onetouch Ultra Test) stripStart: 03-31-2024 End: 51-58-2448Jyprp Sugar Diagnostic stripStart: 97-58-1005Zhhidhx (Onetouch Delica Plus Lancet) 33 gauge miscStart: 48-34-7274Plvpo Sugar Diagnostic (Blood Glucose Test) stripStart: 03-31-2024 End: 64-77-8981Zdugq Sugar Diagnostic (Onetouch Ultra Test) stripStart: 03-31-2024 End: 06-28-2024 Goals DatePatient GoalDesired Activity/State Clinical Notes 03-17-2023 to 03-19-2025 Note Date & EmanZrorTgkubzjw24-06-7111 Evaluation note* Diagnosis Onset Date Resolution Status Admit Date Asthma acuteJune 2024 8:52amEssential hypertensionacuteJune 2024 8:52am Hyperglycemia due to type 2 diabetes mellitusacuteJune 2024 8:52amMedicare annual wellness visit, subsequentacuteJune 2024 8:52am [facility] Work Phone: 1(259) 430-687201-20-2025 [place] [address] Colonoscopy Procedure Report Signed Patient: Jyothi Keen MR#: [id number] : 1955 Acct:[id number] Age/Sex: 69 / F Adm Date: Loc: Room: Type: [facility] Attending Dr: Simone Calero MD Copies to: MD Joaquina Rosales MD~ Colonoscopy Date/Provider 10/30/2024 Simone Calero MD Narrative Procedure: Colonoscopy with polypectomy Indication: 69-year-old female presents for first-time colonoscopy after having a positive Cologuard test Pre-operative diagnosis: Positive Cologuard Post-operative diagnosis: Colon polyp, hemorrhoids, diverticulosis Sedation: propofol per anesthesia dept O2 oximetry, hemodynamic monitoring was performed pre, during, and post procedure. Patient was identified, H&P completed, patient was given full explanation of the procedure as well as associatedrisks and written consent wasobtained prior to procedure. Patient expressed complete understanding of the procedure as well as alternatives to the procedure and to anesthesia and agreed to proceed with the procedure as indicated. Patient was immediately reassessed prior to IV sedation. Under IV sedation, patient was placed in the left lateral decubitus position. Digital rectal exam was performed and normal. Colonoscope was inserted and passed proximally to the cecum, which was identified by the ileocecal valve, appendiceal orifice and cecal floor. Colonoscope was slowly withdrawnwith the findings as below. Sinai bowel prep score was good. Findings: Cecum: Normal. Ascending colon: Normal. Hepatic flexure: Normal. Transverse colon: Normal. Splenic flexure: Normal. Descending colon: Normal. Sigmoid colon: Severely adhesed sigmoid colon with moderate-severe diverticular disease. 3 mm polypremoved with cold snare, bottle 1. Rectum: Normal. Retroflexed views: Demonstrated small hemorrhoids. Biopsy taken: no Complications: None EBL: minimal Recommendations: -Repeat colonoscopy in 5 years pending path, if polyp is consistent with hyperplastic polyp then wewould not recommend any further colorectal cancer screening in this 69-year-old individual. -Patient should not ever undergo a Cologuard or stool kit testing again. -Follow up pathology -Follow up in the office as needed -Follow up with PCP Following a period of recovery, patient was seen and given full explanation of the procedure. Patient tolerated the procedure well and will be discharged in satisfactory, stable condition. Simone Calero MD Documented By: Simone Calero MD 10/30/24 0957 Signed By: 10/30/[address] [place], [place] 7837201-20-2025 [place] [address] Gastroenterology H&P Signed Patient: Jyothi Keen MR#: [id number] : 1955 Acct:[id number] Age/Sex: 69 / F Adm Date: 5 Loc: Room: Type: [facility] Attending Dr: Simone Calero MD Copies to: MD Joaquina Rosales MD~ Date of Service: 10/30/2024 HISTORY & PHYSICAL: Patient's history with special attention to the cardiovascular, pulmonary systems and the current problem was reviewed with the patient immediately prior to the procedure. Present medications and doses reviewed in the EMR. Allergies and pertinent laboratory tests were also re viewedat this time in the EMR. The physical examination, as below, was then performed. Indication, assessment and HPI: 69-year-old female presents for first-time colonoscopy after havinga positive Cologuard test Family history of GI [...] Simone Calero MD 10/30/24 0956 Signed By: 10/30/24 0957 [facility]12-09-2024 Evaluation note* Diagnosis Onset Date Resolution Status Admit Date Anemia acuteDecember 2023 8:57amColon cancer screeningacuteDecember 2023 8:57amEssential hypertensionacuteDecember 2023 8:57amHyperglycemia due to type 2 diabetes mellitusacuteDecemb 2023 8:57amPrimary osteoarthritis of both kneesacuteDe2023 10:37am [facility] Work Phone: 1(473) 362-870101-25-2024 Evaluation note* Encounter Date Diagnosis Assessment Notes Treatment Notes Treatment Clinical Notes Oct, Primary osteoarthritis of both k nees (ICD-10 - M17.0) Oct,OtherGiven the data corruption on the date of service on unable to recall our treatment plan discussion in its entirety.This documentation is being amended on 11/08/23 due to an internal data corruption event that occurred on 11/04/23. This data corruption event was NOT the result of any breach, fraud, or malicious third democrat actors and no personal patient information was compromised. [employer] Other 12-06-2023 Evaluation note* Encounter Date Diagnosis [...] reviewed and amended by provider signed below. Sep,Hyperglycemia due to type 2 diabetes mellitus (ICD-10 - E11.65) Discussed labs and meds will change glyburide to glipizide followup in 6 months Sep,sthma (ICD-10 - J45.909)pt states flovent is not on formulary but fluticasone is. states asthma is stable on present med and dose. Sep,rimary osteoarthritis of both knees (ICD-10 - M17.0)Reviewed PT and treatment with injection w ortho. [employer] Other 10-12-2023 Evaluation note* Encounter Date Diagnosis Assessment Notes Treatment Notes Treatment Clinical Notes Jul, Pain in right knee (ICD-10 - M25 .561) Jul,ain in left knee (ICD-10 - M25.562) Jul,rimary osteoarthritis of both knees (ICD-10 - M17.0) Jul,Other1. We had a long discussion with the [...] injections well. 6. Follow up 3 months. [facility] [employer] Other 06-07-2023 Evaluation note* Encounter Date Diagnosis Assessment Notes Treatment Notes Treatment Clinical Notes Mar, Asthma (ICD-10 - J45.909) Pt requests refill. Denies increased symptoms with poor air quality. Mar,Essential hypertension (ICD-10 - I10)Elevated today. Discussed increasing dose of lisinopril. Will check home bps for 1 week and call with results. Mar,Elevated lipids (ICD-10 - E78.5)chronic - check labs in Nov. Mar,Hyperglycemia due to type 2 diabetes mellitus (ICD-10 - E11.65) Improved A1C - order placed and sent to [facility] [employer] Other Evaluation noteNo InformationNortUniversity of Pennsylvania Health System [employer] Other Evaluation noteNo assessment information available [facility] Work Phone: History and physical note Author Simone Calero [facility] Date/TimeJanuary 2024 9:57am [place] [address] Gastroenterology H&P Signed Patient: Jyothi Keen MR#: [id number] : 1955 Acct:[id number] Age/Sex: 69 / F Adm Date: 5 Loc: Room: Type: [facility] Attending Dr: Simone Calero MD Copies to: MD Joaquina Rosales MD~ Date of Service: 10/30/2024 HISTORY & PHYSICAL: Patient's history with special attention to the cardiovascular, pulmonary systems and the current problem was reviewed with the patient immediately prior to the procedure. Present medications and doses reviewed in the EMR. Allergies and pertinent laboratory tests were also re viewedat this time in the EMR. The physical examination, as below, was then performed. Indication, assessment and HPI: 69-year-old female presents for first-time colonoscopy after havinga positive Cologuard test Family history of GI [...] signed by Simone Calero MD> 10/30/24 0957 [facility] Work Phone: History general Narrative - Reported* Type Description Date Medical History Asthma Medical HistoryEssential hypertensionMedical HistoryHyperglycemia due to type 2 diabetes mellitusMedical HistoryElevated lipidsSurgical HistoryBONE TUMOR REMOVED FROM [id number] HistorySEE SURGICAL HX [employer] Other Summary Purpose Family History Relationship Condition Age at Onset Recorded Date/T pineda father Heart disease Unknown DeceasedUnknownmotherHeart diseaseUnknownsonHistory of strokeUnknown Advance Directives Advance Directive Response Recorded Date/ Time Advance Directives No July 22, 2023 12:13pm Advance Directive Response Recorded Date/ Time Advance Directives No July 23, 2023 4:39pm Advance Directive Response Recorded Date/ Time Advance Directives No March 19 9:24am Chief Complaint and Reason for Visit Chief [...] of both knees Dec ember 2023 10:37am Chief Complaint Admit Date Wellness March 19, 2025 8:52a m Reason for Visit Admit Date Asthma March 19, 2025 8:52a m Essential hypertension March 19, 2025 8: 52am Hyperglycemia due to type 2 diabetes marlen litus March 19, 2025 8:52am Medicare annual wellness visit, subseque nt March 19, 2025 8:52am Additional Source Comments INFORMATION SOURCE (unrecogn ized section and content) DATE CREATED AUTHOR 01/14/2023 [facility] DATE CREATED AUTHOR AUTHOR'S ORGANIZ ATION 12/06/2024 [facility] REASON FOR VISIT (unrecogniz ed section [...] Benigno Johns II, MD Attending Provider Active Roderick Ortegaandalusia healthfuad Alegre ProviderActive Team Status: Inactive Member Role Status Julee Harrell MD Primary Care Provide r, Attending Provider Active Start: September 18, 2024 End: September 18, 2024 Team Status: Inactive Member Role Status Julee Harrell MD Primary Care Provider Active Start: September 21, 2024 End: September 21philipp Johns II, MDAttending ProviderActiveStart: September 21, 2024 End: September 21, 2024 Team Status: Inactive Member Role Status Julee Harrell MD Primary Care Provider Active Start: October 30, 2024 End: October 30Allyssa Louise ProviderActiveStart: October 30, 2024 End: October 30, 2024 Team Status: Active Member Role Status Julee Harrell MD Primary Care Provider Active Start: October 30, 2024 Allyssa Rosales Provider, Other ProviderActiveStart: October 30, 2024 Team Status: Inactive Member Role Status Julee Harrell MD Primary Care Provide r, Attending Provider Active Start: March 19, 2025 End: March 19, 2025 Goals (unrecognized section and content) Goals may [...] BE BASED ON THE PRIMARY CLINICAL RECORDS. [employer] provides no warranty or guarantee of the accuracy or completeness of information in this document.
--- OUTSIDE RECORDS SUMMARY | 2025-08-22 07:27 | XMS_ITS | Clinical Summary ---
Author Organization [facility] Address [address] [place] [address] Care Team Providers Care Driver Courier Name Role Phone Unavailable Primary Care Provider Unavailabl e Social History Tobacco UseTypesPacks/DayYears UsedDateSmoking Tobacco: Never Assessed CommentsUnknownSex and Gender InformationValueDate RecordedSex Assigned at Not on fileLegal OqwBdfjlg75/15/2023 8:25 PM EDTGender IdentityNot on fileSexual OrientationNot on file Last Filed Vital Signs Vital SignReadingTime TakenCommentsBlood Fugfijbk191/9109 12:00 PM EDT Pulse--Temperature--Respiratory Rate--Oxygen Saturation--Inhaled Oxygen Concentration--Ibopnz10.9 kg (152 lb)06/21/2018 12:00 PM ORSUebcqk160.9 cm (5' 1 )06/21/2018 12:00 PM EDTBody Mass Index28.72006/21/2018 12:00 PM EDT Plan of Treatment Not on file
== END 2025-08-22 07:25 | disposition home or self-care (01) ==
LOC: MAMMO 07:24
PROVIDERS: PCP Family Medicine; Visit Provider Family Medicine
DX: Z12.31 Encounter for screening mammogram for malignant neoplasm of breast (principal); Z80.42 Family history of malignant neoplasm of prostate
CPT/HCPCS: 77063; 77067